=== PATIENT | female | born 1960 | race Caucasian/White ===

== ENCOUNTER 2018-08-31 11:44 | Inpatient (IN) | payer MEDICARE, OTHER ==
--- NOTE | 2018-08-31 12:04 | ER Document Report ---
ED Medical Screen (RME) - General Chief Complaint: Staple Removal Stated Complaint: SUTURE REMOVAL Time Seen by Provider: 08/31/18 11:59 Primary Care Provider: SHELBY MCFADDEN PA-C [Primary Care Provider] - Follow up as needed Notes: Patient had abdominal surgical procedures August 13, in [place]. She had panniculectomy and mons reconstruction and removal of an area of hidradenitis suppurativa. She was told the rio could be removed in 3 weeks, at this time. Patient says some of the rio have become embedded and overgrown and are very uncomfortable. Some of them have some drainage, but nothing that looks infected. No fevers. TRAVEL OUTSIDE OF THE [place] IN LAST 30 DAYS: No - Related Data Allergies/Adverse Reactions: Sulfa (Sulfonamide Antibiotics) Allergy (Verified 08/31/18 11:47) sumatriptan [From Imitrex] Allergy (Verified 08/31/18 11:47) Physical Exam - Vital signs Vitals: Temp Pulse Resp BP Pulse Ox 97.9 F 76 16 142/70 H 98 08/31/18 11:48 08/31/18 11:48 08/31/18 11:48 08/31/18 11:48 08/31/18 11:48 Course - Vital Signs Vital signs: Temp Pulse Resp BP Pulse Ox 97.9 F 76 16 142/70 H 98 08/31/18 11:48 08/31/18 11:48 08/31/18 11:48 08/31/18 11:48 08/31/18 11:48 Doctor's Discharge - Discharge Referrals: SHELBY MCFADDEN PA-C [Primary Care Provider] - Follow up as needed
--- NOTE | 2018-08-31 15:15 | ER Document Report ---
ED General - General Chief Complaint: Staple Removal Stated Complaint: SUTURE REMOVAL Time Seen by Provider: 08/31/18 11:59 Notes: 58-year-old female with history of hydradenitis suppurativa, atrial fibrillation on Xarelto, type 2 diabetes, hypertension, and rheumatoid arthritis on Remicade with recent panniculectomy and mons reconstruction on August 13 to remove an area of her hydradenitis suppurativa presents to the emergency department for staple removal. She states she was told that the rio could be removed in 3 weeks. She was hospitalized for 7 days, had a wound VAC and REBA drains x3. There were complications with the labia rio and they dehisced early. She is currently using wet-to-dry dressings and states that there is interval improvement. She denies any fevers or chills, shortness of breath or chest pain. Denies any warmth at any of the sites. Other complaints. TRAVEL OUTSIDE OF THE [place] IN LAST 30 DAYS: No - Related Data Allergies/Adverse Reactions: Sulfa (Sulfonamide Antibiotics) Allergy (Verified 08/31/18 11:47) sumatriptan [From Imitrex] Allergy (Verified 08/31/18 11:47) Past Medical History - Social History Smoking Status: Never Smoker Family History: None Patient has suicidal ideation: No Patient has homicidal ideation: No - Past Medical History Cardiac Medical History: Reports: Hx Hypercholesterolemia, Hx Hypertension Endocrine Medical History: Reports: Hx Diabetes Mellitus Type 2 Renal/ Medical History: Denies: Hx Peritoneal Dialysis Past Surgical History: Reports: Hx Appendectomy, Hx Section, Hx Cholecystectomy, Hx Orthopedic Surgery, Hx Tubal Ligation Review of Systems - Review of Systems Constitutional: See HPI EENT: See HPI Cardiovascular: See HPI Respiratory: See HPI Gastrointestinal: See HPI Genitourinary: No symptoms reported Female Genitourinary: No symptoms reported Musculoskeletal: No symptoms reported Skin: No symptoms reported Hematologic/Lymphatic: No symptoms reported Neurological/Psychological: No symptoms reported Physical Exam - Vital signs Vitals: Temp Pulse Resp BP Pulse Ox 97.9 F 76 16 142/70 H 98 08/31/18 11:48 08/31/18 11:48 08/31/18 11:48 08/31/18 11:48 08/31/18 11:48 - Notes Notes: PHYSICAL EXAMINATION: Reviewed vital signs and charting by RN GENERAL: Alert, interacts well. No acute distress. HEAD: Normocephalic, atraumatic. EYES: Pupils equal, round. Extraocular movements intact. ENT: Oral mucosa moist, tongue midline. NECK: Full range of motion. Supple. Trachea midline. LUNGS: Clear to auscultation bilaterally, no wheezes, rales, or rhonchi. No respiratory distress. HEART: Regular rate and rhythm. No murmur ABDOMEN: soft, non-tender. Non-distended. Bowel sounds present in all 4 quadrants. no McBurney's point tenderness, no Bueno sign. EXTREMITIES: Moves all 4 extremities spontaneously. No edema, No cyanosis. BACK: no cervical, thoracic, lumbar midline tenderness. No saddle anesthesia, normal distal neurovascular exam. NEUROLOGICAL: Alert and oriented x3. Normal speech. PSYCH: Normal affect, normal mood. SKIN: Large surgical incision from ASIS anterior across to ASIS secondary to panniculectomy grossly dehisced. Area is foul smelling and there is purulent discharge at the area where the mons pubis is with dehiscence. Course - Re-evaluation Re-evalutation: 08/31/18 15:17 Patient presents for suture removal. On initial inspection very poor wound healing throughout several areas with wound dehiscence or poor to no wound healing or approximation at all. She does have some purulent discharge in several areas and a wound culture was collected. Basic lab work and blood cultures ordered. I am going to contact Dr. Simons, surgeon continuing education director, to discuss this case. 08/31/18 19:54 Dr. Simons, came to see the patient and did perform some staple removal. He explored the incisions and did a mild debridement and cleanout at the bedside. I called the hospitalist as he requested a medical admission due to patient's extensive comorbidities and he would act as a presales consultant. Spoke with Dr. Rodrigues and he accepted the patient for admission. I gave the patient Ancef 1 g IV 1 time to initiate IV antibiotics. - Vital Signs Vital signs: Temp Pulse Resp BP Pulse Ox 98.2 F 66 14 138/53 H 99 08/31/18 14:36 08/31/18 14:36 08/31/18 14:36 08/31/18 14:36 08/31/18 14:36 - Laboratory Result Diagrams: 08/31/18 15:20 08/31/18 15:20 Laboratory results interpreted by me: 08/31/18 08/31/18 15:20 15:20 Hgb 11.0 L Hct 33.0 L RDW 14.2 H Sodium 136.8 L Est GFR ( Amer) 57 L Est GFR (Non-Af Amer) 47 L Glucose 118 H AST 49 H Alkaline Phosphatase 135 H Total Protein 8.5 H Discharge - Discharge Clinical Impression: Problem involving surgical incision Disposition: ADMITTED INPATIENT Admitting Provider: Hospitalist Unit Admitted: Surgical Floor
[2018-08-31 15:41] LABS: ABSOLUTE BASOPHILS # (AUTO) 0.1 10^3/uL (0.0-0.2); ABSOLUTE EOSINOPHILS # (AUTO) 0.4 10^3/uL (0.0-0.6); ABSOLUTE LYMPHOCYTES (AUTO) 1.7 10^3/uL (0.5-4.7); ABSOLUTE MONOCYTES (AUTO) 0.8 10^3/uL (0.1-1.4); ABSOLUTE NEUT (AUTO) 5.5 10^3/uL (1.7-8.2); BASOPHILS % (AUTO) 1.1 % (0-2); EOSINOPHILS % (AUTO) 4.9 % (0-6); LYMPHOCYTES % (AUTO) 19.8 % (13-45); MEAN CORPUSCULAR HEMOGLOBIN 29.7 pg (27.0-33.4); MEAN CORPUSCULAR HGB CONC 33.5 g/dL (32.0-36.0); MEAN CORPUSCULAR VOLUME 89 fl (80-97); MONOCYTES % (AUTO) 9.1 % (3-13); PLATELET COUNT 323 10^3/uL (150-450); RED BLOOD COUNT 3.72 10^6/uL (3.72-5.28); RED CELL DISTRIBUTION WIDTH 14.2 % (11.5-14.0); SEGMENTED NEUTROPHILS % (AUTO) 65.1 % (42-78); TOTAL CELLS COUNTED % (AUTO) 100 %; WHITE BLOOD COUNT 8.4 10^3/uL (4.0-10.5)
[2018-08-31 15:58] LABS: ALANINE AMINOTRANSFERASE 21 U/L (9-52); ALBUMIN 4.1 g/dL (3.5-5.0); ALKALINE PHOSPHATASE 135 U/L (38-126); ANION GAP 11 (5-19); ASPARTATE AMINO TRANSFERASE 49 U/L (14-36); BILIRUBIN,DIRECT 0.4 mg/dL (0.0-0.4); BILIRUBIN,TOTAL 0.6 mg/dL (0.2-1.3); BLOOD UREA NITROGEN 20 mg/dL (7-20); CARBON DIOXIDE 24 mmol/L (22-30); CHLORIDE 102 mmol/L (98-107); GLUCOSE 118 mg/dL (75-110); SODIUM 136.8 mmol/L (137-145); TOTAL PROTEIN 8.5 g/dL (6.3-8.2)
[2018-08-31] MEDS ORDERED: CEFAZOLIN 1 GM/D5W RTU 1 GM/50 ML RTUPB IV ONE (16:17)
[2018-08-31] MEDS ORDERED: ONDANSETRON HCL INJ/PF 4 MG/2 ML SDV IV PRN (16:40)
[2018-08-31] MEDS ORDERED: MAGNESIUM HYDROXIDE SUSP 30 ML UDCUP PO PRN (16:40)
[2018-08-31] MEDS ORDERED: ACETAMINOPHEN 325 MG TABLET PO PRN (16:40)
[2018-08-31] MEDS ORDERED: GLUCAGON,HUMAN RECOMB 1 MG INJ IM PRN (16:51)
[2018-08-31] MEDS ORDERED: DEXTROSE 50%-WATER 25 GM/50 ML DISP.SYRIN IV PRN ×2 (16:51)
[2018-08-31] MEDS ORDERED: DEXTROSE 40% GEL 15 GM TUBE PO PRN ×2 (16:51)
--- NOTE | 2018-08-31 17:02 | PDOC CONSULTATION ---
Consultation Consult Date: 08/31/18 Consult reason:: Panniculectomy wound problems History of Present Illness Admission Date/PCP: AMERICA NGUYEN MD History of Present Illness: FABIAN FREY is a 58 year old female Who presents to the emergency department via ground rescue complaining of chronic wound problems associated with a panniculectomy, resection of hidradenitis suppurativa performed in [facility] on August 13 by plastic surgery team. Patient had partial dehiscence of her wound, wound VAC, and drain all removed last several weeks. She returned home to [facility] and has been from her incision. She presents to the emergency department because of increased drainage. She denies fever, significant change in her blood sugar levels. Her local medical doctors are associated with [facility]. She is on chronic immunosuppression with Remicade. Surgery was consulted and she was advised admission wound management to various partial dehiscence, and soft tissue instability Past Medical History Past Medical History: Morbid obesity, diabetes mellitus, gout, hypertension, chronic hidradenitis suppurativa Cardiac Medical History: Reports: Hyperlipidema, Hypertension Endocrine Medical History: Reports: Diabetes Mellitus Type 2 Past Surgical History Past Surgical History: Panniculectomy August 13 [place] Past Surgical History: Reports: Appendectomy, Section, Cholecystectomy, Orthopedic Surgery, Tubal Ligation Social History Smoking Status: Never Smoker Frequency of Alcohol Use: None Hx Recreational Drug Use: No Hx Prescription Drug Abuse: No Family History Family History: None Parental Family History Reviewed: Yes Children Family History Reviewed: Yes Sibling(s) Family History Reviewed.: Yes Medication/Allergy Allergies/Adverse Reactions: Sulfa (Sulfonamide Antibiotics) Allergy (Verified 08/31/18 11:47) sumatriptan [From Imitrex] Allergy (Verified 08/31/18 11:47) Review of Systems Constitutional: PRESENT: as per HPI Eyes: ABSENT: visual disturbances Ears: ABSENT: hearing changes Respiratory: ABSENT: cough, hemoptysis Gastrointestinal: ABSENT: abdominal pain, constipation, diarrhea, hematemesis, hematochezia, nausea, vomiting Integumentary: PRESENT: as per HPI Psychiatric: ABSENT: anxiety, depression, homidical ideation, suicidal ideation Endocrine: ABSENT: cold intolerance, heat intolerance, polydipsia, polyuria Physical Exam Vital Signs: Temp Pulse Resp BP Pulse Ox 98.2 F 66 14 138/53 H 99 08/31/18 14:36 08/31/18 14:36 08/31/18 14:36 08/31/18 14:36 08/31/18 14:36 Intake & Output 08/30/18 08/31/18 09/01/18 06:59 06:59 06:59 Weight 136.3 kg General appearance: PRESENT: no acute distress Head exam: PRESENT: normocephalic Eye exam: PRESENT: EOMI Mouth exam: PRESENT: dry mucosa Neck exam: PRESENT: full ROM Respiratory exam: PRESENT: clear to auscultation mattie Cardiovascular exam: PRESENT: RRR Pulses: PRESENT: normal carotid pulses, normal radial pulses, normal dorsalis pedis pul GI/Abdominal exam: PRESENT: other - Large different shape panniculectomy in cision with rio in place many dehisced; no component of the incision going down to the mons pubic area with dehiscence inferiorly, expose granulation tissue, some seropurulent material, some rio long-term in; some acuña fibrinous eschar; no active pus or foul smell Rectal exam: PRESENT: deferred Extremities exam: PRESENT: +1 edema Musculoskeletal exam: PRESENT: ambulatory Neurological exam: PRESENT: awake, oriented to person, oriented to place, oriented to time, oriented to situation Psychiatric exam: PRESENT: appropriate affect Results Laboratory Results: 08/31/18 15:20 08/31/18 15:20 08/31/18 08/31/18 15:20 15:20 WBC 8.4 RBC 3.72 Hgb 11.0 L Hct 33.0 L MCV 89 MCH 29.7 MCHC 33.5 RDW 14.2 H Plt Count 323 Seg Neutrophils % 65.1 Lymphocytes % 19.8 Monocytes % 9.1 Eosinophils % 4.9 Basophils % 1.1 Absolute Neutrophils 5.5 Absolute Lymphocytes 1.7 Absolute Monocytes 0.8 Absolute Eosinophils 0.4 Absolute Basophils 0.1 Sodium 136.8 L Potassium 4.0 Chloride 102 Carbon Dioxide 24 Anion Gap 11 BUN 20 Creatinine 1.18 Est GFR ( Amer) 57 L Est GFR (Non-Af Amer) 47 L Glucose 118 H Calcium 10.0 Total Bilirubin 0.6 AST 49 H ALT 21 Alkaline Phosphatase 135 H Total Protein 8.5 H Albumin 4.1 Assessment & Plan - Diagnosis (1) Status post panniculectomy Is this a current diagnosis for this admission?: Yes Plan: Impression: 1 month status post panniculectomy for complicated hidradenitis suppurativa in morbidly obese, immunosuppressed white female with diabetes mary jo itus now with areas of wound dehiscence; No overt signs of flap failure or significant soft tissue infection. Recommendations: 1. I have removed multiple rio of no use, and multiple sutures also of no use; areas of wound washed out; the mons pubic wound will require wet-to-dry dressing. The left side of the panniculectomy wound will require Xeroform, dry gauzes and micropore tape. The right side of the panniculectomy appears stable at this time; there is nothing to actively debride currently; she may benefit from a debridement of selected areas. 2. Because of the chronic nature of this postoperative problem, her multiple comorbidities, and the size of this wound, I recommended to be admitted for local wound care, and empiric antibiotic therapy. Transition to the [facility] wound [facility] for follow-up on an outpatient basis in the 24 to 48 hours. 3. I have spoken with the primary care team, and the emergency department; surgery will serve in a consulting capacity, and the patient will be admitted to the hospitalist service. (2) Morbid obesity Is this a current diagnosis for this admission?: Yes (3) Hidradenitis suppurativa Is this a current diagnosis for this admission?: Yes (4) Diabetes mellitus Qualifiers: Diabetes mellitus type: type 2 (5) Gout Is this a current diagnosis for this admission?: Yes - Time Time Spent: 30 to 50 Minutes Smoking Cessation Education: over 10 minutes Medications reviewed and adjusted accordingly: Yes Anticipated discharge: Home - Inpatient Certification Based on my medical assessment, after consideration of the patient's comorbidities, presenting symptoms, or acuity I expect that the services needed warrant INPATIENT care.: Yes I certify that my determination is in accordance with my understanding of Medicare's requirements for reasonable and necessary INPATIENT services [42 CFR 412.3e].: Yes Medical Necessity: Need for IV Antibiotics
[2018-08-31] MEDS: HYDRALAZINE HCL INJ/PF 20 MG/1 ML SDV IV SCH ×2 (20:30→22:54)
[2018-08-31] MEDS: LEVOFLOXACIN 750 MG/D5W RTU 750 MG/150 ML RTUPB IV SCH (21:09)
[2018-08-31] MEDS: DOCUSATE SODIUM 100 MG CAPSULE PO SCH (22:54)
[2018-08-31] MEDS: CEFAZOLIN 2 GM/D5W RTU 2 GM/50 ML RTUPB IV SCH (22:55)
[2018-08-31] MEDS: INSULIN REG, HUMAN 100 UNIT/ML 3 ML VIAL (PYX) SUBCUT SCH (23:27)
[2018-09-01] MEDS: ATORVASTATIN CALCIUM 40 MG TABLET PO SCH ×2 (00:15→21:27)
[2018-09-01] MEDS: ZOLPIDEM TARTRATE 5 MG TABLET PO PRN ×2 (00:52→21:39)
[2018-09-01] MEDS: HYDRALAZINE HCL INJ/PF 20 MG/1 ML SDV IV SCH ×5 (02:42→18:20)
[2018-09-01 05:17] LABS: ABSOLUTE BASOPHILS # (AUTO) 0.1 10^3/uL (0.0-0.2); ABSOLUTE EOSINOPHILS # (AUTO) 0.4 10^3/uL (0.0-0.6); ABSOLUTE LYMPHOCYTES (AUTO) 1.7 10^3/uL (0.5-4.7); ABSOLUTE MONOCYTES (AUTO) 0.9 10^3/uL (0.1-1.4); BASOPHILS % (AUTO) 1.2 % (0-2); HEMATOCRIT 31.1 % (36.0-47.0); HEMOGLOBIN 10.6 g/dL (12.0-15.5); LYMPHOCYTES % (AUTO) 23.3 % (13-45); MEAN CORPUSCULAR HGB CONC 33.9 g/dL (32.0-36.0); MEAN CORPUSCULAR VOLUME 89 fl (80-97); PLATELET COUNT 281 10^3/uL (150-450); RED BLOOD COUNT 3.52 10^6/uL (3.72-5.28); RED CELL DISTRIBUTION WIDTH 14.2 % (11.5-14.0); SEGMENTED NEUTROPHILS % (AUTO) 56.5 % (42-78); TOTAL CELLS COUNTED % (AUTO) 100 %; WHITE BLOOD COUNT 7.1 10^3/uL (4.0-10.5)
[2018-09-01] MEDS: PANTOPRAZOLE SODIUM 40 MG TABLET.DR PO SCH (05:21)
[2018-09-01] MEDS: CEFAZOLIN 2 GM/D5W RTU 2 GM/50 ML RTUPB IV SCH ×2 (05:22→14:40)
[2018-09-01 05:41] LABS: ALANINE AMINOTRANSFERASE 26 U/L (9-52); ALBUMIN 3.2 g/dL (3.5-5.0); ALKALINE PHOSPHATASE 117 U/L (38-126); ANION GAP 9 (5-19); ASPARTATE AMINO TRANSFERASE 32 U/L (14-36); BILIRUBIN,DIRECT 0.2 mg/dL (0.0-0.4); BILIRUBIN,TOTAL 0.5 mg/dL (0.2-1.3); BLOOD UREA NITROGEN 20 mg/dL (7-20); CALCIUM 9.5 mg/dL (8.4-10.2); CARBON DIOXIDE 23 mmol/L (22-30); CHLORIDE 106 mmol/L (98-107); GLUCOSE 138 mg/dL (75-110); POTASSIUM 3.9 mmol/L (3.6-5.0); SODIUM 138.1 mmol/L (137-145); TOTAL PROTEIN 6.9 g/dL (6.3-8.2)
--- NOTE | 2018-09-01 08:13 | PDOC PROGRESS REPORT ---
Subjective Progress Note for:: 09/01/18 Subjective:: no pains Reason For Visit: INFECTED WOUND Physical Exam Vital Signs: Temp Pulse Resp BP Pulse Ox 97.8 F 73 16 138/54 H 97 09/01/18 05:21 09/01/18 05:21 09/01/18 05:21 09/01/18 05:21 09/01/18 05:21 Intake & Output 08/31/18 09/01/18 09/02/18 06:59 06:59 06:59 Intake Total 400 Output Total 1000 Balance -600 Weight 136.1 kg Exam: abdominal incision appears dry. Mild erythema at midpart. Non foul smelling Results Laboratory Results: 09/01/18 05:01 09/01/18 05:01 08/31/18 08/31/18 09/01/18 15:20 15:20 05:01 WBC 8.4 7.1 RBC 3.72 3.52 L Hgb 11.0 L 10.6 L Hct 33.0 L 31.1 L MCV 89 89 MCH 29.7 30.0 MCHC 33.5 33.9 RDW 14.2 H 14.2 H Plt Count 323 281 Seg Neutrophils % 65.1 56.5 Lymphocytes % 19.8 23.3 Monocytes % 9.1 13.0 Eosinophils % 4.9 6.0 Basophils % 1.1 1.2 Absolute Neutrophils 5.5 4.0 Absolute Lymphocytes 1.7 1.7 Absolute Monocytes 0.8 0.9 Absolute Eosinophils 0.4 0.4 Absolute Basophils 0.1 0.1 Sodium 136.8 L Potassium 4.0 Chloride 102 Carbon Dioxide 24 Anion Gap 11 BUN 20 Creatinine 1.18 Est GFR ( Amer) 57 L Est GFR (Non-Af Amer) 47 L Glucose 118 H Calcium 10.0 Total Bilirubin 0.6 AST 49 H ALT 21 Alkaline Phosphatase 135 H Total Protein 8.5 H Albumin 4.1 09/01/18 05:01 WBC RBC Hgb Hct MCV MCH MCHC RDW Plt Count Seg Neutrophils % Lymphocytes % Monocytes % Eosinophils % Basophils % Absolute Neutrophils Absolute Lymphocytes Absolute Monocytes Absolute Eosinophils Absolute Basophils Sodium 138.1 Potassium 3.9 Chloride 106 Carbon Dioxide 23 Anion Gap 9 BUN 20 Creatinine 1.05 Est GFR ( Amer) > 60 Est GFR (Non-Af Amer) 54 L Glucose 138 H Calcium 9.5 Total Bilirubin 0.5 AST 32 ALT 26 Alkaline Phosphatase 117 Total Protein 6.9 Albumin 3.2 L Assessment & Plan - Time Time Spent with patient: 15-24 minutes - Inpatient Certification Medical Necessity: Need for IV Antibiotics, Risk of Complication if Not Cared For in Hospital - Plan Summary Plan Summary: Continue IV antibiotics Continue saline wet to dry dressings to lower part of incision. Eventual follow up at the [facility]
[2018-09-01] MEDS: INSULIN REG, HUMAN 100 UNIT/ML 3 ML VIAL (PYX) SUBCUT SCH ×4 (09:23→21:24)
[2018-09-01] MEDS: ENOXAPARIN SODIUM INJ 40 MG/0.4 ML DISP.SYRIN SUBCUT SCH (09:25)
[2018-09-01] MEDS: NIFEDIPINE 30 MG TAB.ER.24 PO SCH (09:27)
[2018-09-01] MEDS: METOPROLOL SUCCINATE 50 MG TAB.SR.24H PO SCH (09:28)
[2018-09-01] MEDS: OXYCODONE-ACETAMINOPHEN 5-325 MG TABLET PO PRN (09:29)
[2018-09-01] MEDS: DOCUSATE SODIUM 100 MG CAPSULE PO SCH ×2 (09:29→18:42)
[2018-09-01] MEDS: LEVOFLOXACIN 750 MG/D5W RTU 750 MG/150 ML RTUPB IV SCH (09:31)
[2018-09-01] MEDS ORDERED: DULOXETINE HCL 30 MG CAPSULE.DR PO SCH (10:00)
[2018-09-01] MEDS ORDERED: LOSARTAN POTASSIUM 50 MG TABLET PO SCH (10:00)
--- NOTE | 2018-09-01 10:28 | HISTORY AND PHYSICAL E ---
History and Physical NAME: FABIAN FREY : 1960 AGE: 58Y ADMITTED: 08/31/2018 ROOM: [facility] CHIEF COMPLAINT: 1. THE PATIENT COMES TO THE EMERGENCY ROOM FOR WOUND STAPLE REMOVAL. 2. DIABETES. 3. HYPERTENSION. HISTORY OF THE PRESENT ILLNESS: The patient is a very pleasant, 58-year-old female who is morbidly obese. Has a past medical history of diabetes, hypertension, atrial fibrillation on Xarelto and Toprol XL. The patient has been having hydradenitis suppurativa and she had a surgery, constructive surgery for that at [place] on August 13, 2018. She also had panniculectomy and reconstruction so she came for removal of the staple after 3 weeks after following the surgery. She was evaluated by Dr. Simons in the ER who is the surgicalist technical information specialist. It is noted that the wound has suspicion for infection. Recommended the patient be admitted for IV antibiotics. She received 1 dose of Ancef in ER. Patient denied any fever or nausea, vomiting, or chills. There is noted to be of the wound. Her blood sugar is being controlled as well as also her hypertension also controlled. She had a. fib and she is on Xarelto and Toprol. REVIEW OF SYSTEMS: GENERAL: There is no generalized weakness or fatigue. No fever or chills. HEAD: No headache or dizziness. EARS: No tinnitus or vertigo. NOSE: No discharge from the nose. NECK: No pain or difficulty swallowing. CARDIOVASCULAR: No chest pain, no paroxysmal nocturnal dyspnea or orthopnea. RESPIRATORY: No crackles, no wheezing. No cough. GASTROINTESTINAL: No nausea, no vomiting, no diarrhea. GENITOURINARY: No urgency, no frequency, no dysuria, no hematuria. ENDOCRINE: No polyuria, polyphagia, or polydipsia. PSYCHIATRIC: No depression. HEMATOLOGIC/LYMPHOCYTIC: No anemia, no easy bruising. SKIN: There is no rash. PAST MEDICAL HISTORY: 1. History of diabetes type 2. 2. Hypertension. 3. History of hydradenitis suppurativa requiring constructive surgery. 4. Rheumatoid arthritis; she is on Arava as well as Remicade. PAST SURGICAL HISTORY: 1. Hydradenitis suppurativa. 2. Recent panniculectomy. HOME MEDICATION: 1. She is on Xarelto, dose unknown. 2. Toprol XL. 3. Arava for rheumatoid arthritis. 4. Remicade. 5. Lantus sliding scale. 6. She is also on Benicar. 7. Procardia. ALLERGIES: SHE IS ALLERGIC TO SULFA AND SUMATRIPTAN. SOCIAL HISTORY: Never smokes or drinks. FAMILY HISTORY: Positive for hypertension in her mother and father. PHYSICAL EXAMINATION: GENERAL: Patient lying in bed, comfortable, not in distress. VITAL SIGNS: Blood pressure is 138/53, temperature 98.2, heart rate is 66. HEENT: Head normocephalic, atraumatic. Pupils round, reactive to light and accommodation bilaterally. Extraocular movements intact. Ears: Tympanic membranes are intact bilaterally. No discharge from the ears. No discharge from the nose. NECK: Supple. No increased JVD. No thyromegaly, no lymphadenopathy. CARDIOVASCULAR: Normal S1, S2. Regular rate and rhythm. No murmur. No gallop. RESPIRATORY: Lungs clear. ABDOMEN: Soft, nontender. MUSCULOSKELETAL: No edema. NEUROLOGICAL: Awake, alert. SKIN: No rash. LABORATORY: White blood count 8.4, hemoglobin 11, sodium 136, potassium 4.0. ASSESSMENT: 1. INFECTED WOUND, ABDOMINAL WOUND AND GROIN WOUND. FOLLOWING SURGERY FOR HYDRADENITIS SUPPURATIVA STATUS POST CONSTRUCTIVE SURGERY. 2. DIABETES MELLITUS. 3. HYPERTENSION. 4. MORBID OBESITY. PLAN: 1. We will admit the patient to Surgical floor. 2. Consult surgery. 3. Wound culture, blood culture. 4. We will start her on antibiotics IV, Ancef 2 gram every 8 hour and Levaquin 750 mg every day. 5. Code status: Full code. 6. DIET: Diabetic diet. 7. We will continue her home mediation after we clarify the dose. She is on Benicar, Procardia, Xarelto, Remicade, Arava, Lantus. 8. The patient completely understood. TIME SPENT: One hour. DICTATING PHYSICIAN: HIMANSHU EASTMAN M.D. [id number] PHY#: [id number] ID: [id number] JOB#: [id number] ACCT: [id number] cc:PB PETIT M.D. > ТАТЬЯНАD
[2018-09-01] MEDS: INSULIN GLARGINE,HUM.REC.ANLOG 300 UNIT/3 ML INSULN.PEN SUBCUT SCH (11:36)
[2018-09-01] MEDS: LOSARTAN POTASSIUM 50 MG TABLET PO SCH (11:37)
[2018-09-01] MEDS ORDERED: VANCOMYCIN HCL 0 MG in DEXTROSE 5%-WATER 250 ML IV NR (18:45)
--- NOTE | 2018-09-01 19:04 | PDOC PROGRESS REPORT ---
Subjective Progress Note for:: 09/01/18 Subjective:: This is a 58 year old female with chronic wound problems associated with a panniculectomy, resection of hidradenitis suppurativa performed in [facility] on August 13 by plastic surgery team, had partial dehiscence of her wound, wound VAC, and drain all removed last several weeks, on chronic immunosuppression with Infliximab who presented with wound dehiscence and increasing discharge. She was started on IV antibiotics and surgery was consulted. Today, per RN, patient continued to have yellowish but non-foul smelling discharge from the abdominal pannus. No fever or chills. Surgery recommends continuing IV antibiotics for now. Wound culture is growing gram positive cocci and gram positive rods so far. Will broaden IV antibiotics for now until culture s are back. Reason For Visit: INFECTED WOUND Physical Exam Vital Signs: Temp Pulse Resp BP Pulse Ox 97.7 F 64 14 134/59 H 97 09/01/18 16:22 09/01/18 16:22 09/01/18 16:22 09/01/18 16:22 09/01/18 16:22 Intake & Output 08/31/18 09/01/18 09/02/18 06:59 06:59 06:59 Intake Total 400 1440 Output Total 1000 400 Balance -600 1040 Weight 300 lb 0.786 oz General appearance: PRESENT: no acute distress, well-developed, well-nourished Head exam: PRESENT: atraumatic, normocephalic Eye exam: PRESENT: conjunctiva pink, EOMI, PERRLA. ABSENT: scleral icterus Ear exam: PRESENT: normal external ear exam Mouth exam: PRESENT: moist, tongue midline Neck exam: ABSENT: carotid bruit, JVD, lymphadenopathy, thyromegaly Respiratory exam: PRESENT: clear to auscultation mattie. ABSENT: rales, rhonchi, wheezes Cardiovascular exam: PRESENT: RRR. ABSENT: diastolic murmur, rubs, systolic murmur GI/Abdominal exam: PRESENT: normal bowel sounds, soft, other - dressing soaked with drainage. ABSENT: distended, guarding, mass, organolmegaly, rebound, tenderness Rectal exam: PRESENT: deferred Neurological exam: PRESENT: alert, awake, oriented to person, oriented to place, oriented to time, oriented to situation, CN II-XII grossly intact. ABSENT: motor sensory deficit Results Laboratory Results: 09/01/18 05:01 09/01/18 05:01 09/01/18 09/01/18 05:01 05:01 WBC 7.1 RBC 3.52 L Hgb 10.6 L Hct 31.1 L MCV 89 MCH 30.0 MCHC 33.9 RDW 14.2 H Plt Count 281 Seg Neutrophils % 56.5 Lymphocytes % 23.3 Monocytes % 13.0 Eosinophils % 6.0 Basophils % 1.2 Absolute Neutrophils 4.0 Absolute Lymphocytes 1.7 Absolute Monocytes 0.9 Absolute Eosinophils 0.4 Absolute Basophils 0.1 Sodium 138.1 Potassium 3.9 Chloride 106 Carbon Dioxide 23 Anion Gap 9 BUN 20 Creatinine 1.05 Est GFR ( Amer) > 60 Est GFR (Non-Af Amer) 54 L Glucose 138 H Calcium 9.5 Total Bilirubin 0.5 AST 32 ALT 26 Alkaline Phosphatase 117 Total Protein 6.9 Albumin 3.2 L Assessment & Plan - Diagnosis (1) Hidradenitis suppurativa Is this a current diagnosis for this admission?: Yes Plan: There is continuing yellowish, non foul smelling drainage from the dehisced wound. Will broaden IV antibiotic coverage for now until cultures are back. (2) Hypertension Is this a current diagnosis for this admission?: Yes Plan: DC scheduled IV hydralazine. Continue losartan, metoprolol and nifedipine. (3) Diabetes mellitus Qualifiers: Diabetes mellitus type: type 2 Is this a current diagnosis for this admission?: Yes Plan: Sugars at goal. Continue Lantus and sliding scale. - Time Time Spent with patient: 25-34 minutes
[2018-09-01] MEDS: VANCOMYCIN HCL 1,500 MG in DEXTROSE 5%-WATER 250 ML IV SCH (21:28)
[2018-09-01] MEDS: PIPERACILLIN SODIUM/TAZOBACTAM 3.375 GM in NORMAL SALINE 100 ML IV SCH (23:59)
[2018-09-02] MEDS: PIPERACILLIN SODIUM/TAZOBACTAM 3.375 GM in NORMAL SALINE 100 ML IV SCH ×3 (05:52→17:23)
[2018-09-02] MEDS: PANTOPRAZOLE SODIUM 40 MG TABLET.DR PO SCH (05:52)
[2018-09-02] MEDS: INSULIN REG, HUMAN 100 UNIT/ML 3 ML VIAL (PYX) SUBCUT SCH ×4 (08:46→21:50)
[2018-09-02] MEDS: DOCUSATE SODIUM 100 MG CAPSULE PO SCH ×2 (09:18→17:24)
[2018-09-02] MEDS: LOSARTAN POTASSIUM 50 MG TABLET PO SCH (09:20)
[2018-09-02] MEDS: NIFEDIPINE 30 MG TAB.ER.24 PO SCH (09:21)
[2018-09-02] MEDS: METOPROLOL SUCCINATE 50 MG TAB.SR.24H PO SCH (09:21)
[2018-09-02] MEDS: DULOXETINE HCL 30 MG CAPSULE.DR PO SCH (09:22)
[2018-09-02] MEDS: ENOXAPARIN SODIUM INJ 40 MG/0.4 ML DISP.SYRIN SUBCUT SCH (09:24)
[2018-09-02] MEDS: INSULIN GLARGINE,HUM.REC.ANLOG 300 UNIT/3 ML INSULN.PEN SUBCUT SCH (09:24)
[2018-09-02] MEDS: OXYCODONE-ACETAMINOPHEN 5-325 MG TABLET PO PRN (09:46)
--- NOTE | 2018-09-02 15:55 | PDOC PROGRESS REPORT ---
Subjective Progress Note for:: 09/02/18 Subjective:: denies pains Reason For Visit: INFECTED WOUND Physical Exam Vital Signs: Temp Pulse Resp BP Pulse Ox 98.5 F 72 16 134/83 H 96 09/02/18 11:47 09/02/18 11:47 09/02/18 11:47 09/02/18 11:47 09/02/18 11:47 Intake & Output 09/01/18 09/02/18 09/03/18 06:59 06:59 06:59 Intake Total 400 2290 Output Total 1000 400 Balance -600 1890 Weight 136.1 kg 135.1 kg Exam: panniculectomy site same as yesterday. No apparent collection. Continued mild erythema at the area just above the labia. Not any worse Results Laboratory Results: 09/01/18 05:01 09/01/18 05:01 Assessment & Plan - Diagnosis (1) Cellulitis Qualifiers: Site of cellulitis of trunk: abdominal wall Is this a current diagnosis for this admission?: Yes - Time Time Spent with patient: 15-24 minutes - Inpatient Certification Medical Necessity: Need for IV Antibiotics - Plan Summary Plan Summary: Continue IV antibiotics Recommend [facility]
[2018-09-02] MEDS: VANCOMYCIN HCL 1,500 MG in DEXTROSE 5%-WATER 250 ML IV SCH (20:01)
[2018-09-02] MEDS: ATORVASTATIN CALCIUM 40 MG TABLET PO SCH (21:51)
[2018-09-03] MEDS: PIPERACILLIN SODIUM/TAZOBACTAM 3.375 GM in NORMAL SALINE 100 ML IV SCH ×5 (00:01→23:14)
--- NOTE | 2018-09-03 04:51 | PDOC PROGRESS REPORT ---
Subjective Progress Note for:: 09/02/18 Subjective:: 58 y.o. F with a PMH of hydradenitis suppurativa, atrial fibrillation on Xarelto, type 2 diabetes, hypertension, and rheumatoid arthritis on Remicade. She underwent a recent panniculectomy, resection of hidradenitis suppurativa (performed in [facility] on August 13 by plastic surgery team). There were complications with the labia rio and they dehisced early. The labia rio, wound VAC, and 2 REBA drains were all removed in the last several weeks. The sole stover presented to [facility] ED for removal of the panniculectomy rio, initial assessment revealed wound dehiscence and increasing discharge. She was admitted to the hospitalist service, with Surgery consulted, for her infected wound. The patient was seen this morning on rounds, she is resting comfortably in bed with family at bedside. The patient denies any pain to the surgical site. Had been undergoing daily wet-to-dry dressing changes to the affected area. There is still a significant amount of yellow discharge/pus at the surgical site. The patient has not spiked a fever, she denies fever or chills, appears nontoxic. To not feel that the patient is ready for discharge given the condition of her wound. Will re-evaluate tomorrow. No planned surgical intervention at this time. Reason For Visit: INFECTED WOUND Physical Exam Vital Signs: Temp Pulse Resp BP Pulse Ox 97.8 F 65 18 134/54 H 94 09/02/18 23:53 09/02/18 23:53 09/02/18 23:53 09/02/18 23:53 09/02/18 23:53 Intake & Output 09/01/18 09/02/18 09/03/18 06:59 06:59 06:59 Intake Total 400 2290 550 Output Total 1000 400 450 Balance -600 1890 100 Weight 136.1 kg 135.1 kg General appearance: PRESENT: morbidly obese Eye exam: PRESENT: conjunctiva pink Mouth exam: PRESENT: moist, tongue midline Neck exam: PRESENT: full ROM Respiratory exam: PRESENT: symmetrical, unlabored Cardiovascular exam: PRESENT: +S1, +S2 Pulses: PRESENT: normal radial pulses Vascular exam: PRESENT: normal capillary refill GI/Abdominal exam: PRESENT: soft, tenderness - near surgical site. ABSENT: distended Rectal exam: PRESENT: deferred Extremities exam: PRESENT: full ROM Musculoskeletal exam: PRESENT: ambulatory, full ROM Neurological exam: PRESENT: alert, awake, oriented to person, oriented to place, oriented to time, oriented to situation Psychiatric exam: PRESENT: appropriate affect Skin exam: PRESENT: dry, erythema, normal color, other - PANNICULECTOMY SURGICAL SITE APPEARS ERYTHEMATOUS. THE LABIA SURGICAL SITE IS OPEN, WET TO DRY DRESSING PRESENT. YELLOW DRAINAGE PRESENT. NON-MALODOROUS. Results Laboratory Results: 09/01/18 05:01 09/01/18 05:01 Status: Imported from PACS Assessment and Plan - Diagnosis (1) Hidradenitis suppurativa Is this a current diagnosis for this admission?: Yes Plan: Yellow, non-malodorous drainage on the area of wound dehiscence Continue broad spectrum antibiotics - Vanc/Zosyn Awaiting wound C&S Plan for close follow up with wound care clinic (2) Diabetes mellitus Qualifiers: Diabetes mellitus type: type 2 Is this a current diagnosis for this admission?: Yes Plan: History of DM Humalog SSI Daily glargine 20U Accuchecks ACHS (3) Morbid obesity Is this a current diagnosis for this admission?: Yes Plan: Weight management via diet control - Time Time Spent with patient: 15-24 minutes Medications reviewed and adjusted accordingly: Yes Anticipated discharge: Home Within: within 48 hours - Inpatient Certification Based on my medical assessment, after consideration of the patient's comorbidities, presenting symptoms, or acuity I expect that the services needed warrant INPATIENT care.: Yes I certify that my determination is in accordance with my understanding of Medicare's requirements for reasonable and necessary INPATIENT services [42 CFR 412.3e].: Yes Medical Necessity: Need for IV Antibiotics - Plan Summary Plan Summary: CONTINUE IV ABX. AWAITING WOUND C&S. PLAN FOR DISCHARGE WITH CLOSE FOLLOW UP [facility]IC
[2018-09-03] MEDS: PANTOPRAZOLE SODIUM 40 MG TABLET.DR PO SCH (06:21)
[2018-09-03 08:28] LABS: HEMATOCRIT 29.8 % (36.0-47.0); HEMOGLOBIN 10.1 g/dL (12.0-15.5); MEAN CORPUSCULAR HGB CONC 33.8 g/dL (32.0-36.0); MEAN CORPUSCULAR VOLUME 89 fl (80-97); PLATELET COUNT 242 10^3/uL (150-450); RED BLOOD COUNT 3.35 10^6/uL (3.72-5.28); RED CELL DISTRIBUTION WIDTH 14.2 % (11.5-14.0); WHITE BLOOD COUNT 5.7 10^3/uL (4.0-10.5)
[2018-09-03 08:42] LABS: ALANINE AMINOTRANSFERASE 26 U/L (9-52); ALKALINE PHOSPHATASE 111 U/L (38-126); ANION GAP 10 (5-19); ASPARTATE AMINO TRANSFERASE 27 U/L (14-36); BILIRUBIN,DIRECT 0.3 mg/dL (0.0-0.4); BILIRUBIN,TOTAL 0.4 mg/dL (0.2-1.3); BLOOD UREA NITROGEN 15 mg/dL (7-20); CALCIUM 9.3 mg/dL (8.4-10.2); CARBON DIOXIDE 21 mmol/L (22-30); CHLORIDE 108 mmol/L (98-107); GLUCOSE 133 mg/dL (75-110); POTASSIUM 3.7 mmol/L (3.6-5.0); SODIUM 139.2 mmol/L (137-145); TOTAL PROTEIN 6.8 g/dL (6.3-8.2)
[2018-09-03] MEDS: DULOXETINE HCL 30 MG CAPSULE.DR PO SCH (10:12)
[2018-09-03] MEDS: METOPROLOL SUCCINATE 50 MG TAB.SR.24H PO SCH (10:13)
[2018-09-03] MEDS: NIFEDIPINE 30 MG TAB.ER.24 PO SCH (10:13)
[2018-09-03] MEDS: LOSARTAN POTASSIUM 50 MG TABLET PO SCH (10:13)
[2018-09-03] MEDS: INSULIN GLARGINE,HUM.REC.ANLOG 300 UNIT/3 ML INSULN.PEN SUBCUT SCH (10:14)
[2018-09-03] MEDS: ENOXAPARIN SODIUM INJ 40 MG/0.4 ML DISP.SYRIN SUBCUT SCH (10:14)
[2018-09-03] MEDS: INSULIN REG, HUMAN 100 UNIT/ML 3 ML VIAL (PYX) SUBCUT SCH ×4 (10:34→22:33)
[2018-09-03] MEDS: DOCUSATE SODIUM 100 MG CAPSULE PO SCH ×2 (10:38→17:23)
[2018-09-03] MEDS: OXYCODONE-ACETAMINOPHEN 5-325 MG TABLET PO PRN (10:39)
[2018-09-03] MEDS ORDERED: MICONAZOLE NITRATE 2% VAGINAL CREAM 45 GM TUBE PV SCH (22:00)
[2018-09-03] MEDS ORDERED: MICONAZOLE NITRATE 200 MG/SUPP (3 SUPP/BOX) VG SCH (22:00)
[2018-09-03] MEDS: ATORVASTATIN CALCIUM 40 MG TABLET PO SCH (22:34)
[2018-09-04] MEDS: PANTOPRAZOLE SODIUM 40 MG TABLET.DR PO SCH (05:15)
[2018-09-04] MEDS: PIPERACILLIN SODIUM/TAZOBACTAM 3.375 GM in NORMAL SALINE 100 ML IV SCH ×2 (05:15→13:07)
[2018-09-04] MEDS: LOSARTAN POTASSIUM 50 MG TABLET PO SCH (10:33)
[2018-09-04] MEDS: NIFEDIPINE 30 MG TAB.ER.24 PO SCH (10:33)
[2018-09-04] MEDS: METOPROLOL SUCCINATE 50 MG TAB.SR.24H PO SCH (10:34)
[2018-09-04] MEDS: DULOXETINE HCL 30 MG CAPSULE.DR PO SCH (10:34)
[2018-09-04] MEDS: ENOXAPARIN SODIUM INJ 40 MG/0.4 ML DISP.SYRIN SUBCUT SCH (10:35)
[2018-09-04] MEDS: INSULIN GLARGINE,HUM.REC.ANLOG 300 UNIT/3 ML INSULN.PEN SUBCUT SCH (10:36)
[2018-09-04] MEDS: NYSTATIN 500000 UNIT/5 ML UDCUP PO SCH ×4 (11:06→17:15)
[2018-09-04] MEDS: DOCUSATE SODIUM 100 MG CAPSULE PO SCH (11:10)
[2018-09-04] MEDS: INSULIN REG, HUMAN 100 UNIT/ML 3 ML VIAL (PYX) SUBCUT SCH ×2 (11:10→16:20)
[2018-09-04] MEDS ORDERED: FLUCONAZOLE 100 MG TABLET PO ONE (13:00)
--- NOTE | 2018-09-04 15:11 | Progress Note ---
Provider Note Provider Note: ID Consult Note Asked to review chart by Alla Copeland NP. Pt not seen or examined. Pt is a 58 year old morbidly obese woman with PMH including AF on anticoagulation, DM, HTN, RA on Remicade, and recent panniculectomy and mons reconstruction for hidradenitis suppurativa on 08/03 who had partial dehiscence of her wound, wound VAC, and drain that were removed. She presented to the [place] ED on 08/31/18 for staple removal and increased drainage. In the ED the wound was noted to have areas of dehiscence in many places, purulent drainage and malodor, but when re- examined by Dr Simons seropurlent material and some acuña fibrinous eschar was appreciated without active pus. On follow up the wound has been noted to have some mild erythema at the midpart above the labia and no apparent collection. Some sort of swab was sent when the patient was in the ED from the abdominal incision to the lab, which grew skin tory, Klebsiella oxytoca, Enterococcus faecalis, and Prevotella. Pt has a sulfa allergy. She is currently receiving Zosyn IV. She has no fever, no leukocytosis, and blood cultures are negative. Impression Infection of post-panniculectomy/mons-reconstruction surgical wound - Not all surgical site infections require adjunctive systemic antimicrobial therapy, particularly in absence of systemic signs of infection and limited local signs of infection. However with the patient's immunosuppression, such features may be blunted, and a course of systemic antimicrobial therapy may be reasonable. - Superficial wound swab cultures are not always helpful because they can reveal growth of organisms that are colonists, in addition to those that could be pathogens, but it is helpful that no MRSA or Pseudomonas was isolated. Recommendations - The following might be reasonable options: PO Keflex 1 g QID plus Flagyl 500 mg TID. or PO Levaquin 750 mg daily plus Flagyl 500 mg TID - Keflex/Flagyl would pose less of a C diff risk, but it has a higher pill burden and frequency. If Levaquin/Flagyl is used, the pt should be instructed to avoid concurrently taking Maalox, Tums, calcium, magnesium or zinc containing products or multivitamin with minerals to avoid chelating the oral fluoroquinolone. - Would aim for 5-7 days of treatment in conjunction with good local wound care. Stewart Sam MD [facility] Infectious Diseases pager [phone]
[2018-09-04] MEDS ORDERED: METRONIDAZOLE 500 MG TABLET PO SCH (16:45)
[2018-09-04] MEDS: OXYCODONE-ACETAMINOPHEN 5-325 MG TABLET PO PRN (17:16)
[2018-09-04] MEDS ORDERED: CEPHALEXIN 500 MG CAPSULE PO SCH (18:00)
[2018-09-04 18:19] VITALS: BP 117/62
[2018-09-05] MEDS ORDERED: INSULIN GLARGINE,HUM.REC.ANLOG 1,000 UNIT/10 ML VIAL SUBCUT SCH (10:00)
--- NOTE | 2018-09-15 12:34 | PDOC DISCHARGE SUMMARY ---
General - Admit/Disc Date/PCP Admission Date/Primary Care Provider: 08/31/18 16:56 AMERICA NGUYEN MD Discharge Date: 09/04/18 - Discharge Diagnosis (1) Hidradenitis suppurativa Is this a current diagnosis for this admission?: Yes (2) Diabetes mellitus Is this a current diagnosis for this admission?: Yes (3) Morbid obesity Is this a current diagnosis for this admission?: Yes - Additional Information Discharge Diet: As Tolerated Discharge Activity: Activity As Tolerated Prescriptions: Cephalexin Monohydrate [Keflex 500 mg Capsule] 1,000 mg PO QID #28 capsule Metronidazole [Flagyl 500 mg Tablet] 500 mg PO Q8 #21 tablet Nystatin [Mycostatin 500,000 Unit/5 ml Susp Udcup] 500,000 unit PO QID #20 udc Home Medications: Allopurinol [Zyloprim] 150 mg PO DAILY 08/31/18 Atorvastatin Calcium [Lipitor 40 mg Tablet] 40 mg PO QPM 08/31/18 Duloxetine HCl [Cymbalta] 60 mg PO DAILY 08/31/18 Empagliflozin [Jardiance] 25 mg PO DAILY 08/31/18 Furosemide [Lasix] 40 mg PO Q2D 08/31/18 Infliximab-Dyyb [Inflectra] 100 mg IV .EVERY 6 WEEKS 08/31/18 Insulin Glargine,Hum.rec.anlog [Lantus Insulin 100 Unit/mL] 20 unit SUBCUT DAILY 08/31/18 Lactobacillus Acidophilus [Probiotic] 1 each PO DAILY 08/31/18 Leflunomide [Arava] 10 mg PO DAILY 08/31/18 Metoprolol Succinate [Toprol Xl] 50 mg PO Q12 08/31/18 Nifedipine [Procardia XL 30 mg Tablet] 30 mg PO DAILY 08/31/18 Olmesartan Medoxomil [Benicar] 40 mg PO DAILY 08/31/18 Spironolactone [Aldactone 25 mg Tablet] 25 mg PO Q12 08/31/18 Cephalexin Monohydrate [Keflex 500 mg Capsule] 1,000 mg PO QID #28 capsule 09/04/18 Metronidazole [Flagyl 500 mg Tablet] 500 mg PO Q8 #21 tablet 09/04/18 Nystatin [Mycostatin 500,000 Unit/5 ml Susp Udcup] 500,000 unit PO QID #20 udc 03/21/19 History of Present Illness History of Present Illness: see H&P dictation from 08/31/2018 Hospital Course Hospital Course: 58 y.o. F with a PMH of hydradenitis suppurativa, atrial fibrillation on Xarelto, type 2 diabetes, hypertension, and rheumatoid arthritis on Remicade. She underwent a recent panniculectomy, resection of hidradenitis suppurativa (performed in [facility] on August 13 by plastic surgery team). There were complications with the labia rio and they dehisced early. The labia rio, wound VAC, and 2 REBA drains were all removed in the last several weeks. The patie hernandez presented to [facility] ED for removal of the panniculectomy rio, initial assessment revealed wound dehiscence and increasing discharge. She was admitted to the hospitalist service, with Surgery consulted, for her infected wound. Dr. Simons of Surgery removed multiple rio and sutured, but not all. The surgical wound over the mons pubis was washed out and packed with xeroform. Subsequent dressing changes were done by nursing staff. Yellow, non-malodorous drainage was noted on the area of wound dehiscence. Wound culture sent to lab and patient was placed on broad spectrum antibiotics - Vancomycin/Zosyn. The culture eventually grew out Enterococcus, Klebsiella and Prevotella. ID was consulted regarding antibiotic regimen and duration of treatment. The patient was transitioned from Vancomycin/Zosyn to PO keflex and Flagyl, per recommendations from Dr. Sam. The patient requested oral nystatin because she believed she was developing thrush as a result of the IV antibiotics. In additi on to antibiotics and nystatin, the patient was given instructions to follow up closely with the [place] wound care clinic. On hospital day #3 the patient was sent home with home health and fci, specifically for wound care. Dressing instructions for the home health nurse: The mons pubic wound will require wet-to-dry dressing. The left side of the panniculectomy wound will require Xeroform, dry gauzes and micropore tape. The right side of the panniculectomy appears stable at this time; there is nothing to actively debride currently Physical Exam Vital Signs: Temp Pulse Resp BP Pulse Ox 97.7 F 72 20 117/62 99 09/04/18 18:15 09/04/18 18:15 09/04/18 18:15 09/04/18 18:15 09/04/18 18:15 Results Laboratory Results: 09/03/18 07:45 09/03/18 07:00 Status: Imported from PACS Qualifiers - * PATIENT BEING DISCHARGED WITH ANY OF THE FOLLOWING DIAGNOSIS: No
== END 2018-09-04 20:30 | disposition home health service (06) | DRG 863 ==
LOC: ER 11:44 → EH 16:56 → 2N 22:45
PROVIDERS: ADMIT Internal Medicine; ATTEND Internal Medicine
DX: T81.49XA Infection following a procedure, other surgical site, initial encounter (principal); T81.31XA Disruption of external operation (surgical) wound, not elsewhere classified, initial encounter; I48.91 Unspecified atrial fibrillation; E66.01 Morbid (severe) obesity due to excess calories; E11.9 Type 2 diabetes mellitus without complications; B96.1 Klebsiella pneumoniae [K. pneumoniae] as the cause of diseases classified elsewhere; B37.9 Candidiasis, unspecified; L73.2 Hidradenitis suppurativa; I10 Essential (primary) hypertension; M06.9 Rheumatoid arthritis, unspecified; B95.2 Enterococcus as the cause of diseases classified elsewhere; M10.9 Gout, unspecified; E78.5 Hyperlipidemia, unspecified; Z48.02 Encounter for removal of sutures; Z79.84 Long term (current) use of oral hypoglycemic drugs; Z79.4 Long term (current) use of insulin; Z79.01 Long term (current) use of anticoagulants; Z88.6 Allergy status to analgesic agent; Z88.2 Allergy status to sulfonamides; Z82.49 Family history of ischemic heart disease and other diseases of the circulatory system
CPT/HCPCS: 36415; 80053; 82962; 83735; 85025; 85027; 87040; 87070; 87075; 87077; 87186; 87205; 99284; J0690; J1650; J1815; J1956; J2543; J3370; J3490; J7060

== ENCOUNTER → 2018-10-27 | Outpatient (CLI) | payer MEDICARE, OTHER ==
--- NOTE | 2018-10-27 12:38 | WOMENS IMAGING REPORT ---
EXAM DESCRIPTION: RETROPERITONEAL U/S COMPLETED DATE/TIME: 10/27/2018 11:35 am REASON FOR STUDY: N18.3 CHRONIC KIDNEY DISEASE, STAGE 3 N18.3 CHRONIC KIDNEY DISEASE, STAGE 3 (MODE RATE) I12.9 HYPERTENSIVE CHRONIC KIDNEY DISEASE W STG 1-4/UNSP CHR E11.9 TYPE 2 DIABETES MELLITUS W ITHOUT COMPLICATIONS COMPARISON: None. TECHNIQUE: Dynamic and static grayscale images acquired of the kidneys and bladder and recorded on P ACS. Additional selected color Doppler and spectral images recorded. LIMITATIONS: None. FINDINGS: RIGHT KIDNEY: Normal size, 10.3 cm. Normal echogenicity. No solid or suspicious muriel s. No hydronephrosis. No calcifications. LEFT KIDNEY: Normal size, 11.5 cm. Normal echogenicity. No solid or suspicious masses. No hydr onephrosis. No calcifications. BLADDER: Poorly seen. No obvious mass. OTHER FINDINGS: No other significant finding. IMPRESSION: Grossly normal study. Study is limited by patient body habitus. TECHNICAL DOCUMENTATION: JOB ID: [id number] [employer]- All Rights Reserved Reading location - IP/workstation name: [email or web address]
== END ==
LOC: RAD 11:11
PROVIDERS: ATTEND Internal Medicine Nephrology
DX: E11.22 Type 2 diabetes mellitus with diabetic chronic kidney disease (principal); I12.9 Hypertensive chronic kidney disease with stage 1 through stage 4 chronic kidney disease, or unspecified chronic kidney disease; N18.3 Chronic kidney disease, stage 3 (moderate)
CPT/HCPCS: 76770

== ENCOUNTER → 2018-11-20 | Outpatient (CLI) | payer MEDICARE, OTHER ==
[2018-11-20 13:28] LABS: ABSOLUTE EOSINOPHILS # (AUTO) 0.2 10^3/uL (0.0-0.6); ABSOLUTE LYMPHOCYTES (AUTO) 0.9 10^3/uL (0.5-4.7); ABSOLUTE MONOCYTES (AUTO) 0.5 10^3/uL (0.1-1.4); ABSOLUTE NEUT (AUTO) 3.6 10^3/uL (1.7-8.2); BASOPHILS % (AUTO) 0.5 % (0-2); EOSINOPHILS % (AUTO) 3.5 % (0-6); HEMATOCRIT 34.2 % (36.0-47.0); HEMOGLOBIN 11.2 g/dL (12.0-15.5); LYMPHOCYTES % (AUTO) 16.9 % (13-45); MEAN CORPUSCULAR HEMOGLOBIN 28.6 pg (27.0-33.4); MEAN CORPUSCULAR HGB CONC 32.9 g/dL (32.0-36.0); MEAN CORPUSCULAR VOLUME 87 fl (80-97); MONOCYTES % (AUTO) 9.8 % (3-13); PLATELET COUNT 183 10^3/uL (150-450); RED BLOOD COUNT 3.93 10^6/uL (3.72-5.28); RED CELL DISTRIBUTION WIDTH 15.5 % (11.5-14.0); SEGMENTED NEUTROPHILS % (AUTO) 69.3 % (42-78); TOTAL CELLS COUNTED % (AUTO) 100 %; WHITE BLOOD COUNT 5.2 10^3/uL (4.0-10.5)
[2018-11-20 13:38] LABS: APPEARANCE,URINE SLIGHTLY-CLOUDY; BILIRUBIN,URINE NEGATIVE (NEGATIVE); COLOR,URINE YELLOW; GLUCOSE, URINE >=500 mg/dL (NEGATIVE); KETONES,URINE NEGATIVE (NEGATIVE); LEUKOCYTE ESTERASE,URINE SMALL (NEGATIVE); NITRITE,URINE NEGATIVE (NEGATIVE); PROTEIN,URINE NEGATIVE (NEGATIVE); URINE SPECIFIC GRAVITY 1.024; UROBILINOGEN,URINE NEGATIVE mg/dL (<2.0)
[2018-11-20 13:43] LABS: ALBUMIN 3.4 g/dL (3.5-5.0); ANION GAP 10 (5-19); BLOOD UREA NITROGEN 16 mg/dL (7-20); CALCIUM 9.3 mg/dL (8.4-10.2); CARBON DIOXIDE 27 mmol/L (22-30); CHLORIDE 106 mmol/L (98-107); GLUCOSE 218 mg/dL (75-110); IRON(TIBC) 41.5 ug/dL (37-170); PHOSPHORUS 4.3 mg/dL (2.5-4.5); SODIUM 142.8 mmol/L (137-145)
[2018-11-21 12:38] LABS: CREATININE URINE 68.9 mg/dL (Not Estab.); MICROALBUMIN URINE 3.2 ug/mL (Not Estab.)
== END ==
LOC: OD 12:43
PROVIDERS: ATTEND Internal Medicine Nephrology
DX: N39.0 Urinary tract infection, site not specified (principal); E11.22 Type 2 diabetes mellitus with diabetic chronic kidney disease; I12.9 Hypertensive chronic kidney disease with stage 1 through stage 4 chronic kidney disease, or unspecified chronic kidney disease; N18.3 Chronic kidney disease, stage 3 (moderate)
CPT/HCPCS: 36415; 80069; 81001; 82043; 82306; 82570; 82728; 83540; 83550; 83970; 85025; 87086

== ENCOUNTER 2019-01-09 11:52 | Emergency (ER) | payer MEDICARE, OTHER ==
--- NOTE | 2019-01-09 12:42 | ER Document Report ---
ED Medical Screen (RME) - General Chief Complaint: Fever Stated Complaint: FEVER/CHILLS Time Seen by Provider: 01/09/19 12:31 Primary Care Provider: SONDRA GUTIERREZ MD [Primary Care Provider] - Follow up as needed Notes: Patient is a 50-year-old female presents to the emergency department for intermittent fevers since September. Patient states she underwent multiple surgeries in her lower abdomen and mons pubis area. States she was seeing wound management for same. States she has a history of lymphedema does have some active serous drainage from the site from time to time. States she was admitted to the hospital recently for this infection. Patient states since then has had intermittent fevers since September. Patient states she took 1500 mg of Tylenol prior to arrival to the emergency department which is why she currently is afebrile. GENERAL: Morbidly obese alert, interacts well. No acute distress. LUNGS: Clear to auscultation bilaterally, no wheezes, rales, or rhonchi. No respiratory distress. I have greeted and performed a rapid initial assessment of this patient. A comprehensive ED assessment and evaluation of the patient, analysis of test results and completion of the medical decision making process will be conducted by additional ED providers. I have specifically instructed the patient or family members with the patient to immediately return to any nursing staff should anything change in the patient's condition or with their chief complaint. This medical record was dictated with voice recognizing software. There may be grammatical, syntax errors that are unintended. TRAVEL OUTSIDE OF THE [place] IN LAST 30 DAYS: No - Related Data Allergies/Adverse Reactions: Sulfa (Sulfonamide Antibiotics) Allergy (Verified 01/09/19 12:40) sumatriptan [From Imitrex] Allergy (Verified 01/09/19 12:40) Past Medical History - Social History Chew tobacco use (# tins/day): No Frequency of alcohol use: None Drug Abuse: None - Past Medical History Cardiac Medical History: Reports: Hx Hypercholesterolemia, Hx Hypertension Endocrine Medical History: Reports: Hx Diabetes Mellitus Type 2 Renal/ Medical History: Denies: Hx Peritoneal Dialysis Psychiatric Medical History: Reports: Hx Depression Past Surgical History: Reports: Hx Appendectomy, Hx Section, Hx Maria T cystectomy, Hx Orthopedic Surgery, Hx Tubal Ligation Physical Exam - Vital signs Vitals: Temp Pulse Resp BP Pulse Ox 99.6 F 104 H 22 H 171/85 H 94 01/09/19 12:09 01/09/19 12:09 01/09/19 12:09 01/09/19 12:09 01/09/19 12:09 Course - Vital Signs Vital signs: Temp Pulse Resp BP Pulse Ox 99.6 F 104 H 22 H 171/85 H 94 01/09/19 12:09 01/09/19 12:09 01/09/19 12:09 01/09/19 12:09 01/09/19 12:09 Doctor's Discharge - Discharge Referrals: SONDRA GUTIERREZ MD [Primary Care Provider] - Follow up as needed
[2019-01-09 13:32] LABS: VENOUS BLOOD BASE EXCESS -0.3 mmol/L; VENOUS BLOOD HCO3 24.5 mmol/L (20-32); VENOUS BLOOD PCO2 40.6 mmHg (35-63); VENOUS BLOOD PH 7.4 (7.30-7.42)
[2019-01-09 13:34] LABS: HEMATOCRIT 35.7 % (36.0-47.0); HEMOGLOBIN 11.8 g/dL (12.0-15.5); MEAN CORPUSCULAR HEMOGLOBIN 28.9 pg (27.0-33.4); MEAN CORPUSCULAR HGB CONC 33.2 g/dL (32.0-36.0); MEAN CORPUSCULAR VOLUME 87 fl (80-97); PLATELET COUNT 183 10^3/uL (150-450); WHITE BLOOD COUNT 13.1 10^3/uL (4.0-10.5)
[2019-01-09 13:44] LABS: INTERNATIONAL RATION (INR) 1.52; PROTHROMBIN TIME 18.5 SEC (11.4-15.4)
[2019-01-09 13:57] LABS: ALANINE AMINOTRANSFERASE 19 U/L (9-52); ALBUMIN 3.6 g/dL (3.5-5.0); ALKALINE PHOSPHATASE 113 U/L (38-126); ANION GAP 9 (5-19); ASPARTATE AMINO TRANSFERASE 21 U/L (14-36); BILIRUBIN,DIRECT 0.3 mg/dL (0.0-0.4); BILIRUBIN,TOTAL 0.5 mg/dL (0.2-1.3); BLOOD UREA NITROGEN 12 mg/dL (7-20); CALCIUM 9.1 mg/dL (8.4-10.2); CARBON DIOXIDE 26 mmol/L (22-30); CHLORIDE 103 mmol/L (98-107); GLUCOSE 152 mg/dL (75-110); POTASSIUM 3.9 mmol/L (3.6-5.0); TOTAL PROTEIN 7.4 g/dL (6.3-8.2)
[2019-01-09 14:08] LABS: ABSOLUTE LYMPHOCYTES# (MANUAL) 0.7 10^3/uL (0.5-4.7); ABSOLUTE MONOCYTES # (MANUAL) 0.4 10^3/uL (0.1-1.4); BASOPHILS % (MANUAL) 0 % (0-2); EOSINOPHILS % (MANUAL) 1 % (0-6); LYMPHOCYTES % (MANUAL) 5 % (13-45); MONOCYTES % (MANUAL) 3 % (3-13); SEGMENTED NEUTROPHILS % (MAN) 91 % (42-78); TOTAL CELLS COUNTED 100
[2019-01-09 14:10] LABS: ANISOCYTOSIS SLIGHT; HYPOCHROMASIA SLIGHT; PLATELET COMMENT ADEQUATE; PLATELET LARGE PRESENT
--- NOTE | 2019-01-09 14:37 | RADIOLOGY REPORT (SQ) ---
EXAM DESCRIPTION: CHEST SINGLE VIEW COMPLETED DATE/TIME: 01/09/2019 2:30 pm REASON FOR STUDY: fever COMPARISON: None. NUMBER OF VIEWS: One view. TECHNIQUE: Single frontal radiographic image of the chest acquired. LIMITATIONS: None. FINDINGS: LUNGS AND PLEURA: Stable appearance. MEDIASTINUM AND HILAR STRUCTURES: Stable heart size and mediastinal structures. HEART AND VASCULAR STRUCTURES: Stable appearance. SUPPORT DEVICES: Appropriate location without change. BONES: No acute findings. OTHER: No other significant finding. IMPRESSION: STABLE APPEARANCE OF THE CHEST. SUPPORT DEVICES UNCHANGED. TECHNICAL DOCUMENTATION: JOB ID: [id number] [employer]- All Rights Reserved Reading location - IP/workstation name: [email or web address]
--- NOTE | 2019-01-09 14:43 | ER Document Report ---
ED General - General Chief Complaint: Fever Stated Complaint: FEVER/CHILLS Time Seen by Provider: 01/09/19 12:31 Primary Care Provider: SONDRA GUTIERREZ MD [ACTIVE STAFF] - Follow up as needed Notes: Patient is a 58-year-old female with hidradenitis suppurativa, psoriasis that presents to the emergency department for chief complaint of intermittent fevers. Patient states his been getting intermittent fevers over the past 3 to 4 months,, really since September this is been going on it was every 3 to 4 weeks for, but seemingly more frequent, she states her fever was 102 F this morning she took 1500 mg of Tylenol and has come down but she was not sure what caused it she was advised to come to the ER by multiple physicians. She is had flares of hidradenitis, had multiple surgeries on her abdomen as a result. She is on TNF alpha inhibitor, for her condition, her last dose was several weeks ago, she is not due till the second week of January, for her next dose. She has had warmth and erythema to her abdomen, but she states is been getting worse but it has been there for several weeks. She also has had some labial swelling, which is not uncommon with her condition she states. She currently rates her pain as a 4 out of 10 describes it is worse in the labia area. She also reports having some drainage from her scalp, which is being treated with triamcinolone shampoo, and she is following up with a locksmith apprentice. Past Medical History: Hidradenitis suppurativa, psoriasis, arthritis Past Surgical History: Panniculectomy, mon pubis surgery Social History: Denies current tobacco, alcohol or drug use. Family History: Reviewed and noncontributory for presenting illness Allergies: Reviewed, see documented allergy list. REVIEW OF SYSTEMS: Other than noted above, the 12 point review of systems was reviewed with the patient and were negative, all pertinent findings are included in the HPI. PHYSICAL EXAMINATION: Vital signs reviewed, nursing noted reviewed. GENERAL: Obese female, no acute distress appears mildly uncomfortable HEAD: Atraumatic, normocephalic. There are skattered sebhoreic lesions noted on the scalp, no fluctuance noted. EYES: Eyes appear normal, extraocular movements intact, sclera anicteric, conjunctiva are normal. ENT: nares patent, oropharynx clear without exudates. Moist mucous membranes. NECK: Normal range of motion, supple without lymphadenopathy LUNGS: Breath sounds clear to auscultation bilaterally and equal. No wheezes rales or rhonchi. HEART: Regular rate and rhythm without murmurs ABDOMEN: Soft, obese, nontender, normoactive bowel sounds. No rebound, guarding, or rigidity. No masses appreciated. There is erythema noted to the lower abdominal skin without any palpated mass or fluctuance, no significantly tender to palpate. External female genitalia exam: Associate Director Of Nursing present. Patient noted to have one open lesion and swelling noted to the right labia majora, no active drainage currently. EXTREMITIES: Nontender, good range of motion, no pitting or edema. NEUROLOGICAL: No focal neurological deficits. Moves all extremities spontan eously Motor and sensory grossly intact on exam. PSYCH: Normal mood, normal affect. SKIN: Warm, Dry, normal turgor, patient has multiple lesions of the skin, which appear to be excoriations of the abdomen and lower extremities, from picking. TRAVEL OUTSIDE OF THE [place] IN LAST 30 DAYS: No - Related Data Allergies/Adverse Reactions: Sulfa (Sulfonamide Antibiotics) Allergy (Verified 01/09/19 12:40) sumatriptan [From Imitrex] Allergy (Verified 01/09/19 12:40) Past Medical History - Social History Smoking Status: Never Smoker Chew tobacco use (# tins/day): No Frequency of alcohol use: None Drug Abuse: None Family History: None Patient has suicidal ideation: No Patient has homicidal ideation: No - Past Medical History Cardiac Medical History: Reports: Hx Hypercholesterolemia, Hx Hypertension Endocrine Medical History: Reports: Hx Diabetes Mellitus Type 2 Renal/ Medical History: Denies: Hx Peritoneal Dialysis Psychiatric Medical History: Reports: Hx Depression Past Surgical History: Reports: Hx Appendectomy, Hx Section, Hx Cholecystectomy, Hx Orthopedic Surgery, Hx Tubal Ligation Physical Exam - Vital signs Vitals: Temp Pulse Resp BP Pulse Ox 99.6 F 104 H 22 H 171/85 H 94 01/09/19 12:09 01/09/19 12:09 01/09/19 12:09 01/09/19 12:09 01/09/19 12:09 Course - Re-evaluation Re-evalutation: Patient seen and examined vital signs reviewed. Laboratory data and/or imaging were ordered as appropriate for the patient's presenting symptoms and complaint, with consideration of any critical or life threatening conditions that may be associated with their obtained history and exam as noted above. Patient was treated with IV Unasyn, for possible abdominal wall cellulitis Results were reviewed when available and demonstrated mild leukocytosis, with left shift, chemistry unremarkable, UA was not convincing of urinary tract infection The patient was re-evaluated and was hemodynamically stable, otherwise appeared well, was dosed with IV Unasyn, and will be discharged home on Augmentin, which should cover prior cultured wound bacteria, patient was advised to follow-up with her locksmith apprentice and primary care is agreed with this plan of care. Evaluation was most consistent with abdominal wall cellulitis Results were discussed with the patient at this point, after careful considerati on I feel that that patient can be discharged from the emergency department, the patient was educated treatments and reasons to return to the emergency department based on their presumed diagnosis as noted above, they were advised to followup with a primary care physician in 2-3 days. Patient was agreeable to plan of care. *Note is created using voice recognition software and may contain spelling, syntax or grammatical errors. Laboratory 01/09/19 01/09/19 01/09/19 13:15 13:15 13:15 WBC 13.1 H RBC 4.10 Hgb 11.8 L Hct 35.7 L MCV 87 MCH 28.9 MCHC 33.2 RDW 15.0 H Plt Count 183 Total Counted 100 Seg Neutrophils % Not Reportable Seg Neuts % (Manual) 91 H Lymphocytes % Not Reportable Lymphocytes % (Manual) 5 L Monocytes % Not Reportable Monocytes % (Manual) 3 Eosinophils % Not Reportable Eosinophils % (Manual) 1 Basophils % Not Reportable Basophils % (Manual) 0 Absolute Neutrophils Not Reportable Abs Neuts (Manual) 11.9 H Absolute Lymphocytes Not Reportable Abs Lymphs (Manual) 0.7 Absolute Monocytes Not Reportable Abs Monocytes (Manual) 0.4 Absolute Eosinophils Not Reportable Absolute Eos (Manual) 0.1 Absolute Basophils Not Reportable Abs Basophils (Manual) 0.0 Large Platelets PRESENT Platelet Comment ADEQUATE Hypochromasia SLIGHT Anisocytosis SLIGHT PT INR VBG pH VBG pCO2 VBG HCO3 VBG Base Excess Sodium 137.7 Potassium 3.9 Chloride 103 Carbon Dioxide 26 Anion Gap 9 BUN 12 Creatinine 0.97 Est GFR ( Amer) > 60 Est GFR (Non-Af Amer) 59 L Glucose 152 H Lactic Acid 1.7 Calcium 9.1 Total Bilirubin 0.5 Direct Bilirubin 0.3 Neonat Total Bilirubin Not Reportable Neonat Direct Bilirubin Not Reportable Neonat Indirect Bili Not Reportable AST 21 ALT 19 Alkaline Phosphatase 113 Total Protein 7.4 Albumin 3.6 Urine Color Urine Appearance Urine pH Ur Specific [place] Urine Protein Urine Glucose (UA) Urine Ketones Urine Blood Urine Nitrite Urine Bilirubin Urine Urobilinogen Ur Leukocyte Esterase Urine WBC (Auto) Urine RBC (Auto) Urine Bacteria (Auto) Squamous Epi Cells Auto Urine Ascorbic Acid 01/09/19 01/09/19 01/09/19 13:15 13:15 14:20 WBC RBC Hgb Hct MCV MCH MCHC RDW Plt Count Total Counted Seg Neutrophils % Seg Neuts % (Manual) Lymphocytes % Lymphocytes % (Manual) Monocytes % Monocytes % (Manual) Eosinophils % Eosinophils % (Manual) Basophils % Basophils % (Manual) Absolute Neutrophils Abs Neuts (Manual) Absolute Lymphocytes Abs Lymphs (Manual) Absolute Monocytes Abs Monocytes (Manual) Absolute Eosinophils Absolute Eos (Manual) Absolute Basophils Abs Basophils (Manual) Large Platelets Platelet Comment Hypochromasia Anisocytosis PT 18.5 H INR 1.52 VBG pH 7.40 VBG pCO2 40.6 VBG HCO3 24.5 VBG Base Excess -0.3 Sodium Potassium Chloride Carbon Dioxide Anion Gap BUN Creatinine Est GFR ( Amer) Est GFR (Non-Af Amer) Glucose Lactic Acid Calcium Total Bilirubin Direct Bilirubin Neonat Total Bilirubin Neonat Direct Bilirubin Neonat Indirect Bili AST ALT Alkaline Phosphatase Total Protein Albumin Urine Color STRAW Urine Appearance CLEAR Urine pH 5.0 Ur Specific [place] 1.014 Urine Protein 30 H Urine Glucose (UA) >=500 H Urine Ketones NEGATIVE Urine Blood SMALL H Urine Nitrite NEGATIVE Urine Bilirubin NEGATIVE Urine Urobilinogen NEGATIVE Ur Leukocyte Esterase SMALL H Urine WBC (Auto) 26 Urine RBC (Auto) 4 Urine Bacteria (Auto) TRACE Squamous Epi Cells Auto 1 Urine Ascorbic Acid NEGATIVE - Vital Signs Vital signs: Temp Pulse Resp BP Pulse Ox 98.2 F 81 16 148/79 H 99 01/09/19 16:24 01/09/19 16:24 01/09/19 16:24 01/09/19 16:24 01/09/19 16:24 - Laboratory Result Diagrams: 01/09/19 13:15 01/09/19 13:15 Laboratory results interpreted by me: 01/09/19 01/09/19 01/09/19 13:15 13:15 13:15 WBC 13.1 H Hgb 11.8 L Hct 35.7 L RDW 15.0 H Seg Neuts % (Manual) 91 H Lymphocytes % (Manual) 5 L Abs Neuts (Manual) 11.9 H PT 18.5 H Est GFR (Non-Af Amer) 59 L Glucose 152 H Urine Protein Urine Glucose (UA) Urine Blood Ur Leukocyte Esterase 01/09/19 14:20 WBC Hgb Hct RDW Seg Neuts % (Manual) Lymphocytes % (Manual) Abs Neuts (Manual) PT Est GFR (Non-Af Amer) Glucose Urine Protein 30 H Urine Glucose (UA) >=500 H Urine Blood SMALL H Ur Leukocyte Esterase SMALL H Discharge - Discharge Clinical Impression: Hidradenitis suppurativa Cellulitis Qualifiers: Site of cellulitis: trunk Site of cellulitis of trunk: abdominal wall Qualified Code(s): L03.311 - Cellulitis of abdominal wall Condition: Stable Disposition: HOME, SELF-CARE Instructions: Cellulitis ([facility]) Additional Instructions: Please complete the entire course of antibiotics as prescribed, follow-up with your locksmith apprentice, continue to take Tylenol if needed for fever, if your symptoms are worsening, you can always return to the emergency department to be reevaluated. I recommend you start trying Selsun Blue as well for your scalp to see if that will help with some of the drainage that you are having. Prescriptions: Amox Tr/Potassium Clavulanate [Augmentin 875-125 Tablet] 1 tab PO BID #20 tablet Referrals: SONDRA GUTIERREZ MD [ACTIVE STAFF] - Follow up as needed
[2019-01-09 14:44] LABS: APPEARANCE,URINE CLEAR; BILIRUBIN,URINE NEGATIVE (NEGATIVE); COLOR,URINE STRAW; GLUCOSE, URINE >=500 mg/dL (NEGATIVE); KETONES,URINE NEGATIVE (NEGATIVE); LEUKOCYTE ESTERASE,URINE SMALL (NEGATIVE); NITRITE,URINE NEGATIVE (NEGATIVE); PROTEIN,URINE 30 mg/dL (NEGATIVE); URINE SPECIFIC GRAVITY 1.014; UROBILINOGEN,URINE NEGATIVE mg/dL (<2.0)
[2019-01-09] MEDS ORDERED: AMPICILLIN SOD/SULBACTAM 3 GM VIAL IV ONE (15:06)
[2019-01-09 16:06] VITALS: BP 148/79
--- NOTE | 2019-01-09 23:05 | EKG REPORT ---
SEVERITY:- ABNORMAL ECG - SINUS RHYTHM BORDERLINE LEFT AXIS DEVIATION : Confirmed by: Ann Ellis 09-Jan-2019 23:05:05
== END 2019-01-09 16:26 | disposition home or self-care (01) ==
LOC: ER 11:52
DX: L73.2 Hidradenitis suppurativa (principal); L03.311 Cellulitis of abdominal wall; N90.89 Other specified noninflammatory disorders of vulva and perineum; R50.9 Fever, unspecified; L40.9 Psoriasis, unspecified; Z79.899 Other long term (current) drug therapy
CPT/HCPCS: 93005; 99284; 96365; 36415; 87040; 87086; 83605; 85025; 85610; 87088; 80053; 81001; 82803; 71045; 93010; J0295; 87186

== ENCOUNTER → 2019-04-21 | Outpatient (CLI) | payer MEDICARE, OTHER ==
[2019-04-21 12:39] LABS: ABSOLUTE BASOPHILS # (AUTO) 0.1 10^3/uL (0.0-0.2); ABSOLUTE EOSINOPHILS # (AUTO) 0.2 10^3/uL (0.0-0.6); ABSOLUTE LYMPHOCYTES (AUTO) 0.9 10^3/uL (0.5-4.7); ABSOLUTE MONOCYTES (AUTO) 0.5 10^3/uL (0.1-1.4); ABSOLUTE NEUT (AUTO) 4.2 10^3/uL (1.7-8.2); BASOPHILS % (AUTO) 0.9 % (0-2); HEMATOCRIT 35.5 % (36.0-47.0); HEMOGLOBIN 12.2 g/dL (12.0-15.5); LYMPHOCYTES % (AUTO) 14.9 % (13-45); MEAN CORPUSCULAR HEMOGLOBIN 30.5 pg (27.0-33.4); MEAN CORPUSCULAR HGB CONC 34.3 g/dL (32.0-36.0); MEAN CORPUSCULAR VOLUME 89 fl (80-97); MONOCYTES % (AUTO) 8.9 % (3-13); PLATELET COUNT 191 10^3/uL (150-450); RED BLOOD COUNT 3.99 10^6/uL (3.72-5.28); RED CELL DISTRIBUTION WIDTH 13.4 % (11.5-14.0); SEGMENTED NEUTROPHILS % (AUTO) 71.3 % (42-78); TOTAL CELLS COUNTED % (AUTO) 100 %; WHITE BLOOD COUNT 5.9 10^3/uL (4.0-10.5)
[2019-04-21 13:30] LABS: ALBUMIN 3.5 g/dL (3.5-5.0); ANION GAP 11 (5-19); BLOOD UREA NITROGEN 16 mg/dL (7-20); CALCIUM 9.6 mg/dL (8.4-10.2); CARBON DIOXIDE 25 mmol/L (22-30); CHLORIDE 106 mmol/L (98-107); GLUCOSE 143 mg/dL (75-110); IRON(TIBC) 47.9 ug/dL (37-170)
== END ==
LOC: OD 12:02
PROVIDERS: ATTEND Internal Medicine Nephrology
DX: I12.9 Hypertensive chronic kidney disease with stage 1 through stage 4 chronic kidney disease, or unspecified chronic kidney disease (principal); N18.3 Chronic kidney disease, stage 3 (moderate); E11.22 Type 2 diabetes mellitus with diabetic chronic kidney disease; D50.9 Iron deficiency anemia, unspecified; E55.9 Vitamin D deficiency, unspecified; N25.81 Secondary hyperparathyroidism of renal origin
CPT/HCPCS: 36415; 80048; 82040; 82306; 82728; 83540; 83550; 83970; 85025

== ENCOUNTER 2019-08-05 09:46 | Emergency (ER) | payer MEDICARE, OTHER ==
--- NOTE | 2019-08-05 10:13 | ER Document Report ---
ED Medical Screen (RME) - General Chief Complaint: Back Pain Stated Complaint: BACK/RIB PAIN Time Seen by Provider: 08/05/19 10:11 Primary Care Provider: SONDRA GUTIERREZ MD [Primary Care Provider] - Follow up as needed Notes: 59-year-old female with history of CKD stage III presents for right flank/right rib pain for 10 days. Patient was sent over by [facility] due to being unable to straight cath patient for urine. Patient states she is currently being treated by her urologist for E. coli UTI and is currently on doxycycline. Patient states she still has 2-3 more weeks of it. Lungs clear to auscultation bilaterally. Regular rate and rhythm. Mild right CVA tenderness. I have greeted and performed a rapid initial assessment of this patient. A comprehensive ED assessment and evaluation of the patient, analysis of test results and completion of the medical decision making process with be conducted by additional ED providers. TRAVEL OUTSIDE OF THE [place] IN LAST 30 DAYS: No - Related Data Allergies/Adverse Reactions: Sulfa (Sulfonamide Antibiotics) Allergy (Verified 01/09/19 12:40) sumatriptan [From Imitrex] Allergy (Verified 01/09/19 12:40) Past Medical History - Past Medical History Cardiac Medical History: Reports: Hx Hypercholesterolemia, Hx Hypertension Endocrine Medical History: Reports: Hx Diabetes Mellitus Type 2 Renal/ Medical History: Denies: Hx Peritoneal Dialysis Psychiatric Medical History: Reports: Hx Depression Past Surgical History: Reports: Hx Appendectomy, Hx Section, Hx Cholecystectomy, Hx Orthopedic Surgery, Hx Tubal Ligation Doctor's Discharge - Discharge Referrals: SONDRA GUTIERREZ MD [Primary Care Provider] - Follow up as needed
--- NOTE | 2019-08-05 10:53 | RADIOLOGY REPORT (SQ) ---
EXAM DESCRIPTION: RIBS RIGHT W/PA CHEST COMPLETED DATE/TIME: 08/05/2019 10:35 am REASON FOR STUDY: right rib/flank pain COMPARISON: None. TECHNIQUE: Frontal view of the chest and additional views of the right ribs acquired. NUMBER OF VIEWS: Three view. LIMITATIONS: None. FINDINGS: FRONTAL CXR: No pneumothorax. No pleural effusion. No atelectasis or infiltrates. RIBS: No displaced rib fractures. No lytic or blastic bony lesions. OTHER: No other significant finding. IMPRESSION: NO PNEUMOTHORAX. NO DISPLACED RIB FRACTURES. COMMENT: SITE OF TRAUMA/COMPLAINT MARKED/STAMP COMPLETED: NO. TECHNICAL DOCUMENTATION: JOB ID: [id number] 2010 [employer]- All Rights Reserved Reading location - IP/workstation name: [email or web address]
[2019-08-05 11:13] LABS: ABSOLUTE BASOPHILS # (AUTO) 0.1 10^3/uL (0.0-0.2); ABSOLUTE EOSINOPHILS # (AUTO) 0.2 10^3/uL (0.0-0.6); ABSOLUTE MONOCYTES (AUTO) 0.5 10^3/uL (0.1-1.4); ABSOLUTE NEUT (AUTO) 5.9 10^3/uL (1.7-8.2); BASOPHILS % (AUTO) 0.8 % (0-2); EOSINOPHILS % (AUTO) 2.6 % (0-6); HEMATOCRIT 37.5 % (36.0-47.0); HEMOGLOBIN 12.9 g/dL (12.0-15.5); MEAN CORPUSCULAR HEMOGLOBIN 31.1 pg (27.0-33.4); MEAN CORPUSCULAR HGB CONC 34.4 g/dL (32.0-36.0); MEAN CORPUSCULAR VOLUME 90 fl (80-97); MONOCYTES % (AUTO) 6.6 % (3-13); PLATELET COUNT 210 10^3/uL (150-450); RED BLOOD COUNT 4.16 10^6/uL (3.72-5.28); RED CELL DISTRIBUTION WIDTH 14.1 % (11.5-14.0); TOTAL CELLS COUNTED % (AUTO) 100 %; WHITE BLOOD COUNT 7.6 10^3/uL (4.0-10.5)
[2019-08-05 11:28] LABS: ALBUMIN 3.8 g/dL (3.5-5.0); ALKALINE PHOSPHATASE 119 U/L (38-126); ANION GAP 9 (5-19); ASPARTATE AMINO TRANSFERASE 24 U/L (14-36); BILIRUBIN,DIRECT 0.3 mg/dL (0.0-0.4); BILIRUBIN,TOTAL 0.6 mg/dL (0.2-1.3); BLOOD UREA NITROGEN 16 mg/dL (7-20); CALCIUM 9.5 mg/dL (8.4-10.2); CARBON DIOXIDE 28 mmol/L (22-30); CHLORIDE 103 mmol/L (98-107); GLUCOSE 154 mg/dL (75-110); POTASSIUM 3.6 mmol/L (3.6-5.0); TOTAL PROTEIN 8.1 g/dL (6.3-8.2)
[2019-08-05 12:44] LABS: APPEARANCE,URINE CLOUDY; BILIRUBIN,URINE NEGATIVE (NEGATIVE); COLOR,URINE YELLOW; GLUCOSE, URINE >=500 mg/dL (NEGATIVE); KETONES,URINE NEGATIVE (NEGATIVE); PROTEIN,URINE NEGATIVE (NEGATIVE); URINE SPECIFIC GRAVITY 1.023; UROBILINOGEN,URINE NEGATIVE mg/dL (<2.0)
[2019-08-05] MEDS ORDERED: HYDROMORPHONE HCL INJ/PF 2 MG/ML AMPULE IM ONE (14:12)
--- NOTE | 2019-08-05 15:37 | ER Document Report ---
Entered by VERNA COBB SCRIBE 08/05/19 1314 Acting as scribe for:ANN BRYANT, DO ED General - General Chief Complaint: Flank Pain Stated Complaint: BACK/RIB PAIN Time Seen by Provider: 08/05/19 10:11 Primary Care Provider: SONDRA GUTIERREZ MD [ACTIVE STAFF] - Follow up as needed Mode of Arrival: Ambulatory Information source: Patient Notes: This 59 year old female patient presents to the emergency department today with complaints of right sided chest wall pain. Patient describes what sounds like rigors x10 days ago with the chest pain beginning the day after. Patient states the pain has gotten progressively worse since onset. Patient has a very complicated history including a constant urinary tract infection which she is on 90 days of doxycycline for. TRAVEL OUTSIDE OF THE [place] IN LAST 30 DAYS: No - Related Data Allergies/Adverse Reactions: Sulfa (Sulfonamide Antibiotics) Allergy (Verified 08/05/19 10:12) sumatriptan [From Imitrex] Allergy (Verified 08/05/19 10:12) Home Medications: auto immune diseases. kidney disease Past Medical History - General Information source: Patient - Social History Smoking Status: Unknown if Ever Smoked Cigarette use (# per day): No Chew tobacco use (# tins/day): No Frequency of alcohol use: None Drug Abuse: None Lives with: Family Family History: None Patient has suicidal ideation: No Patient has homicidal ideation: No - Past Medical History Cardiac Medical History: Reports: Hx Hypercholesterolemia, Hx Hypertension Endocrine Medical History: Reports: Hx Diabetes Mellitus Type 2 Psychiatric Medical History: Reports: Hx Depression Past Surgical History: Reports: Hx Appendectomy, Hx Section, Hx Cholecystectomy, Hx Orthopedic Surgery, Hx Tubal Ligation Review of Systems - Review of Systems Constitutional: No symptoms reported EENT: No symptoms reported Cardiovascular: No symptoms reported Respiratory: See HPI, Other - right sided reproducible chest wall pain Gastrointestinal: No symptoms reported Genitourinary: No symptoms reported Female Genitourinary: No symptoms reported Musculoskeletal: No symptoms reported Skin: No symptoms reported Hematologic/Lymphatic: No symptoms reported Neurological/Psychological: No symptoms reported -: Yes All other systems reviewed and negative Physical Exam - Vital signs Vitals: Temp Pulse Resp BP Pulse Ox 98.1 F 63 20 151/95 H 100 08/05/19 10:09 08/05/19 10:09 08/05/19 10:09 08/05/19 10:09 08/05/19 10:09 - Notes Notes: Physical Exam: General: Alert, appears uncomfortable. HEENT: Normocephalic. Atraumatic. PERRL. Extraocular movements intact. Oropharynx clear. Neck: Supple. Non-tender. Respiratory: No respiratory distress. Clear and equal breath sounds bilaterally. Cardiovascular: Regular rate and rhythm. Abdominal: Morbidly obese, right lateral rib tenderness with palpation. No distension. Normal Bowel Sounds. Back: No gross abnormalities. There is no midline tenderness with palpation, no step-off or deformity. Extremities: Moves all four extremities. Upper extremities: Normal inspection. Normal ROM. Lower extremities: Normal inspection. No edema. Normal ROM. Neurological: Normal cognition. AAOx4. Normal speech. Psychological: Normal affect. Normal Mood. Skin: Warm. Dry. Normal color. Course - Re-evaluation Re-evalutation: 08/05/19 15:30 MDM 59 year old with right sided rib pain posteriorly. Concerned she may have developed pneumonia or had a bony injury of the right side. She has multiple chronic medical issues - psoriatic arthtitis, persistent fevers and recurrent UTI and hidradenitis along with DM. There is no serious illness here. Although I have considered the possiblity of epidural abcess her pain is not midline and palpation over the midline in the back demonstrates no pain. She has local f ollow up and return precautions were discussed. - Vital Signs Vital signs: Temp Pulse Resp BP Pulse Ox 98.1 F 63 20 151/95 H 100 08/05/19 10:09 08/05/19 10:09 08/05/19 10:09 08/05/19 10:09 08/05/19 10:09 - Laboratory Result Diagrams: 08/05/19 10:46 08/05/19 10:46 Laboratory results interpreted by me: 08/05/19 08/05/19 08/05/19 10:46 10:46 12:26 RDW 14.1 H Est GFR (MDRD) Non-Af 57 L Glucose 154 H Urine Glucose (UA) >=500 H Urine Blood SMALL H Leukocyte Esterase Rfl LARGE H Discharge - Discharge Clinical Impression: Morbid obesity Diabetes mellitus Qualifiers: Diabetes mellitus type: type 2 Diabetes mellitus usp insulin use: unspecified usp insulin use status Diabetes mellitus complication status: with other specified complication Qualified Code(s): E11.69 - Type 2 diabetes mellitus with other specified complication Right-sided back pain Qualifiers: Back pain location: thoracic back pain Chronicity: acute Qualified Code(s): M54.6 - Pain in thoracic spine Condition: Good Disposition: HOME, SELF-CARE Instructions: Ice Packs ([facility]), Muscle Strain ([facility]), Oral Narcotic Medication ([facility]), Pain Medication Injection ([facility]), Warm Packs ([facility]) Additional Instructions: Use ice and alternate ice and heat to your right side and right ribs. Please return here for any problems or any concerns. Prescriptions: Fluconazole [Diflucan] 150 mg PO ONCE PRN 1 Days #1 tablet PRN Reason: Cephalexin Monohydrate [Keflex 500 mg Capsule] 500 mg PO TID #30 capsule Referrals: SONDRA GUTIERREZ MD [ACTIVE STAFF] - Follow up as needed I personally performed the services described in the documentation, reviewed and edited the documentation which was dictated to the scribe in my presence, and it accurately records my words and actions.
[2019-08-05] MEDS ORDERED: HYDROCODONE/ACETAMINOPHEN 5-325 MG (6 TAB/ER DISP) PO PRN (15:56)
[2019-08-05 16:08] VITALS: BP 156/80
== END 2019-08-05 16:08 | disposition home or self-care (01) ==
LOC: ER 09:46
DX: M54.6 Pain in thoracic spine (principal); E66.01 Morbid (severe) obesity due to excess calories; R07.89 Other chest pain; R07.81 Pleurodynia; E11.8 Type 2 diabetes mellitus with unspecified complications; N39.0 Urinary tract infection, site not specified; I10 Essential (primary) hypertension; N28.9 Disorder of kidney and ureter, unspecified; L40.50 Arthropathic psoriasis, unspecified; Z79.899 Other long term (current) drug therapy; Z88.2 Allergy status to sulfonamides; Z88.6 Allergy status to analgesic agent
CPT/HCPCS: 99284; 96372; 51701; 36415; 83605; 83690; 85025; 80053; 81001; 71101; J1170; A9270

== ENCOUNTER → 2019-10-29 | Outpatient (CLI) | payer MEDICARE, OTHER ==
[2019-10-29 10:31] VITALS: BP 117/59
--- NOTE | 2019-10-29 10:31 | ER [facility] ASSESSMENT REPORT ---
Intake - In the Last 14 days Have you traveled outside [place]?: No Have you been in close contact with someone CONFIRMED: No Worked in Healthcare?: No - Symptoms Subjective Fever([place] feverish): Yes Chills: Yes Muscule Aches: Yes Runny Nose: No Sore Throat: No Cough (New or worsening chronic cough): No Shortness of breath: No Nausea or Vomiting: Yes Headache: No Abdominal Pain: No Diarrhea(3 or more loose stools in last 24 hours): No - Do you have any of the following Cystic Fibrosis: No Diabetes: Yes High Blood Pressure: Yes Cardiovascular Disease: Yes Cardiovascular Disease Comment: Pulmonary artery HTN Chronic Kidney Disease: Yes Chronic Kidney Disease Comment: CKD Chronic Liver Disease: No Chronic blood disorder like Sickle Cell Disease: No Weak immune system due to disease or medication: Yes Immune System Comment: lupus Neurologic condition that limits movement: No Developmental delay - Moderate to Severe: No Morbid Obesity (>100 pounds over ideal weight): Yes - Objective Temperature: 97.2 F Pulse Rate: 80 Respiratory Rate: 20 Blood Pressure: 117/59 O2 Sat by Pulse Oximetry: 96 Objective: Given above, testing performed: If Testing Performed: Test Specimen Type Sent to General - General Information source: Patient Notes: Patient presents to the [facility] for screening for the coronavirus. Patient states that she has a history of lupus and has had fever as high as 103.9. Patient also reports chills body aches and nausea. Patient denies any recent known exposure to anyone. Patient states her doctor wanted her evaluated due to her immune compromised state. - Related Data Allergies/Adverse Reactions: Sulfa (Sulfonamide Antibiotics) Allergy (Verified 08/05/19 10:12) sumatriptan [From Imitrex] Allergy (Verified 08/05/19 10:12) Past Medical History - General Information source: Patient - Social History Smoking Status: Never Smoker Lives with: Family Family History: None - Medical History Medical History: Other - Lupus - Past Medical History Cardiac Medical History: Reports: Hx Atrial Fibrillation, Hx Hypercholesterolemia, Hx Hypertension Endocrine Medical History: Reports: Hx Diabetes Mellitus Type 2 Renal/ Medical History: Denies: Hx Peritoneal Dialysis Musculoskeletal Medical History: Reports Hx Systemic Lupus Erythematosus Psychiatric Medical History: Reports: Hx Depression Past Surgical History: Reports: Hx Appendectomy, Hx Section, Hx Cholecystectomy, Hx Orthopedic Surgery, Hx Tubal Ligation Physical Exam - Notes Notes: Full physical exam could not be performed due to covid 19 isolation protocols. Constitutional: Nontoxic appearance, no acute distress Eyes: Nonicteric, extraocular movements intact, sclera clear ENT; posterior pharynx clear without exudates, no tonsillar hypertrophy Cardiovascular: Heart rate and rhythm regular, no murmur no JVD Respiratory: Breath sounds clear bilaterally, nonlabored breathing, no use of accessory muscles, no tachypnea Gastrointestinal: Abdomen not distended Muculoskeletal: Moves all extremities well Skin: Normal color Neuro: Awake alert oriented, normal speech Psych: Normal mood and affect Diagnostic Results Laboratory Results: The patient was evaluated during the global Covid 19 pandemic, and that diagnosis was suspected/considered upon their initial presentation. Their evaluation, treatment and testing was consistent with current guidelines for patients who present with complaints or symptoms that may be related to Covid 19. Patient presents with upper respiratory symptoms worrisome for possible Covid 19. Patient does not have emergency worrying symptoms such as difficulty breathing, shortness of breath, chest pain, pressure, confusion or cyanosis. Patient appears suitable for discharge as they vital signs are stable and patient is nontoxic in appearance. Good return precautions have been discussed with patient, patient verbalized understanding and is agreeable with discharge plan of care at this time. Patient Education/Counseling Counseling/Education: Patient was provided with discharge information including: As a person under investigation for Covid 19, the [place] department of Health and Human Services, division of public health advises you to adhere to the following guidance until your test results are reported to you. If your test result is positive, you will receive additional information from your provider and your local health department at that time. Remain at home until you are cleared by the health provider or public health authorities. Keep a log of visitors to your home, notify any visitors to your home of your isolation status. If you plan to move to a new address or leave the county, notify the local health department in your County. Call your doctor or seek care if you have an urgent medical need. Before seeking medical care, call ahead to get instructions from the provider before arriving at the medical office clinic or hospital. Notify them that you are being tested for the virus that causes Covid 19 so that arrangements can be made, as necessary, to prevent transmission to others in the healthcare setting. Next, notify the local health department in your county. If a medical emergency arises and you need to call 911, inform the first responders that you are being tested for the virus that causes Covid 19. Next, notify the local health department in your county. [facility] Discharge - Discharge Clinical Impression: COVID-19 screening Condition: Stable Disposition: Home; Selfcare
[2019-10-29 11:41] LABS: A TYPE INFLUENZA AG NEGATIVE (NEGATIVE); B INFLUENZA AG NEGATIVE (NEGATIVE)
== END ==
LOC: RDC 09:46
PROVIDERS: ATTEND Nurse Practitioner Family
DX: Z20.828 Contact with and (suspected) exposure to other viral communicable diseases (principal); R50.9 Fever, unspecified; M79.10 Myalgia, unspecified site; R11.0 Nausea; E11.22 Type 2 diabetes mellitus with diabetic chronic kidney disease; N18.9 Chronic kidney disease, unspecified; I27.21 Secondary pulmonary arterial hypertension; M32.9 Systemic lupus erythematosus, unspecified; E66.01 Morbid (severe) obesity due to excess calories; Z88.2 Allergy status to sulfonamides; Z88.6 Allergy status to analgesic agent
CPT/HCPCS: 87804; U0003; 87635; 99211

== ENCOUNTER 2020-04-11 08:00 | Day surgery (SDC) | payer MEDICARE, OTHER ==
[~2020-04-11 08:00] MED LIST: KETOROLAC TROMETHAMINE 0.45% 4 DROP/0.4 ML DROPERETTE OS PRN; LIDOCAINE 3.5% OPH GEL/PF 1 ML/TUBE OS PRN; MIDAZOLAM 2 MG/2 ML INJ ONE; ONDANSETRON HCL INJ/PF 4 MG/2 ML SDV ONE
[2020-04-11] MEDS ORDERED: FENTANYL CITRATE INJ/PF 100 MCG/2 ML AMPUL ONE (08:01)
[2020-04-11] MEDS: BESIFLOXACIN HCL 0.6% OPH SUSP 5 ML BOTTLE OS PRN ×4 (08:25→09:44)
[2020-04-11] MEDS: CYCLOPENTOLATE 0.2%/PHENYLEPHRINE 1% OPH SOLN 2 ML OS PRN ×3 (08:25→08:45)
[2020-04-11] MEDS: TROPICAMIDE 1% OPH SOLN 15 ML OS PRN ×3 (08:25→08:45)
[2020-04-11] MEDS: TETRACAINE HCL 0.5% OPH SOLN 4 ML OS PRN ×3 (08:25→09:15)
[2020-04-11] MEDS ORDERED: EPINEPHRINE INJ/PF 1 MG/1 ML AMPULE ONE (08:59)
[2020-04-11] MEDS: EPINEPHRINE INJ/PF 1 MG/1 ML AMPULE ONE ×2 (09:23→09:30)
[2020-04-11] MEDS: LIDOCAINE 1%/PHENYLEPHRINE 1.5% 1 ML VIAL ONE ×2 (09:23→09:30)
[2020-04-11] MEDS: CHONDR SU A NA/HYALUR INTRAOC KIT (SURGICARE) ONE ×2 (09:24→09:30)
[2020-04-11] MEDS: DORZOLAMIDE HCL 2%/TIMOLOL MALEAT 0.5% OPH SOLN 10 ML OS PRN ×2 (09:44)
--- NOTE | 2020-04-18 20:55 | Operative Report ---
Operative Report[facility] Operative Report: PREOPERATIVE DIAGNOSIS: Nuclear, cortical and posterior subcapsular cataract, left eye POSTOPERATIVE DIAGNOSIS: Nuclear, cortical and posterior subcapsular cataracts, left eye PROCEDURE: Phacoemulsification and posterior chamber intraocular lens implant, left eye PROCEDURE DATE: [April 11, 2020] SURGEON: Zacarias Hardin MD Next ONLINE CONTENT COORDINATOR: [Edelmira] ANESTHESIA: Topical with IV sedation next COMPLICATIONS: None TISSUE TO PATHOLOGY: None ESTIMATED BLOOD LOSS: None INDICATION FOR SURGERY: [Ms. Cheung is a 60 year old female] Who presents to our clinic complaining of difficulty seeing, to read and drive due to blurry vision in both eyes. On examination, she was found to have best corrected visual acuity of [20/40] in the left eye. Ophthalmoscopy revealed a [+1] nuclear, [+3] corneal degeneration, [+1] posterior subcapsular cataract in the left eye with normal appearing cornea, vitreous, retina and optic nerve. I discussed the findings of the exam with the patient. We discussed the risks, benefits and alternatives of cataract extraction and intraocular lens implant in the left eye as a means of improving her vision. Risks that were discussed with the patient include infection, bleeding, retinal detachment and possible need for additional surgery. The patient understands that she may need to wear glasses after surgery. After discussion, the patient indicated her interest in having this procedure performed by signing an informed witness consent form. REPORT OF PROCEDURE: On the day of surgery, the patient was given a topical application to the left eye to consist of drop of Tetracaine 0.5%, tropicamide 1%, Cyclomidril, Besivance 0.6% and Acular 0.45%. The patient was then taken to the operating room in a supine position in a standard eye bed. Intravenous sedation was administered and she was prepped and draped in the standard fashion. A timeout was performed to confirm the surgical site. Attention was directed to the left eye where a paracentesis was created at the 5:30 position at the corneal limbus with a 15 degree blade. The anterior chamber was filled with 0.3 mL of 1% methylparaben free lidocaine and after 30 seconds the anterior chamber was filled with viscoelastic material. A 3 plane corneal incision was then made at the 3 o'clock position at the cornea limbus with a keratome. A continuous curvilinear capsulorrhexis was then made in the anterior capsule of the lens with a cystotome. The lens was hydrodissected using balanced saline solution. The lens nucleus was then removed by phacoemulsification using the stop and chop technique. CDE [9.91]. The remaining cortical material was then removed from the posterior capsular bag using irrigation and aspiration. The posterior capsule bag was filled with viscoelastic material and a lens implant was inserted into the posterior capsule bag. I have chosen for this case is a one piece acrylic lens from [employer] model [[id number]], serial number [[id number]], lens power [22.5]. The lens was removed from its package, inspected and found to be free of defects it was loaded into a [place] D search planner. The search planner was passed through the temporal wound and the lens was advanced into the posterior capsular bag. The lens implant was centered in the posterior capsular bag with the [place]hton spatula the viscoelastic material was removed from the eye using irrigation and aspiration. The wounds were closed by stromal hydration and they were tested with the Weck-Ness sponges and found to have no leaks. Intraocular pressure was assessed by manual palpitation found to be with in the physiologic range. The drape and speculum were removed. Drops of Durezol, Combigan and gatifloxacin were instilled in the left eye. The patient was then taken to the recovery room in good condition. The patient tolerated the procedure very well. The patient was given a prescription for gatifloxacin, Durezol and Ilervo to use every 2 hours while awake today. She will return my clinic tomorrow for follow-up evaluation.
== END 2020-04-11 10:20 | disposition home or self-care (01) ==
LOC: SC 08:00
PROVIDERS: ATTEND Ophthalmology
DX: H25.812 Combined forms of age-related cataract, left eye (principal); E11.36 Type 2 diabetes mellitus with diabetic cataract; Z79.4 Long term (current) use of insulin; F41.9 Anxiety disorder, unspecified; M19.90 Unspecified osteoarthritis, unspecified site; I48.91 Unspecified atrial fibrillation; E11.22 Type 2 diabetes mellitus with diabetic chronic kidney disease; I12.0 Hypertensive chronic kidney disease with stage 5 chronic kidney disease or end stage renal disease; N18.6 End stage renal disease; Z86.73 Personal history of transient ischemic attack (TIA), and cerebral infarction without residual deficits; D64.9 Anemia, unspecified; K21.9 Gastro-esophageal reflux disease without esophagitis
CPT/HCPCS: 82962; 00142; 66984; V2632; J2250; J3490 ×2; A9270; J0171; J3010; J2405; 142

== ENCOUNTER 2020-04-28 13:07 | Day surgery (SDC) | payer MEDICARE, OTHER ==
[~2020-04-28 13:07] MED LIST changes: +CHONDR SU A NA/HYALUR INTRAOC KIT (SURGICARE) ONE; +EPINEPHRINE INJ/PF 1 MG/1 ML AMPULE ONE; +KETOROLAC TROMETHAMINE 0.45% 4 DROP/0.4 ML DROPERETTE OD PRN; -KETOROLAC TROMETHAMINE 0.45% 4 DROP/0.4 ML DROPERETTE OS PRN; +LIDOCAINE 1%/PHENYLEPHRINE 1.5% 1 ML VIAL ONE; -LIDOCAINE 3.5% OPH GEL/PF 1 ML/TUBE OS PRN; -MIDAZOLAM 2 MG/2 ML INJ ONE; -ONDANSETRON HCL INJ/PF 4 MG/2 ML SDV ONE
[2020-04-28] MEDS: TROPICAMIDE 1% OPH SOLN 15 ML OD PRN ×3 (13:43→14:07)
[2020-04-28] MEDS: TETRACAINE HCL 0.5% OPH SOLN 4 ML OD PRN ×3 (13:43→14:14)
[2020-04-28] MEDS: CYCLOPENTOLATE 0.2%/PHENYLEPHRINE 1% OPH SOLN 2 ML OD PRN ×3 (13:44→14:07)
[2020-04-28] MEDS: BESIFLOXACIN HCL 0.6% OPH SUSP 5 ML BOTTLE OD PRN ×4 (13:44→14:50)
[2020-04-28] MEDS ORDERED: MIDAZOLAM 2 MG/2 ML INJ ONE (13:55)
[2020-04-28] MEDS ORDERED: FENTANYL CITRATE INJ/PF 100 MCG/2 ML AMPUL ONE (13:55)
[2020-04-28] MEDS: DORZOLAMIDE HCL 2%/TIMOLOL MALEAT 0.5% OPH SOLN 10 ML OD PRN ×2 (14:50)
[2020-04-28] MEDS: PREDNISOLONE ACETATE 1% OPH SUSP 5 ML OD PRN ×2 (14:50)
[2020-04-28] MEDS ORDERED: ACETAMINOPHEN 325 MG TABLET ONE (15:00)
--- NOTE | 2020-04-28 20:27 | Operative Report ---
Operative Report[facility] Operative Report: PREOPERATIVE DIAGNOSIS: Nuclear, cortical and posterior subcapsular cataract, right eye POSTOPERATIVE DIAGNOSIS: Nuclear, cortical and posterior subcapsular cataracts, right eye PROCEDURE: Phacoemulsification and posterior chamber intraocular lens implant, right eye PROCEDURE DATE: [April 28, 2020] SURGEON: Zacarias Hardin MD Next VP AD [employer]ODUCTS AND PLANNING: [Jo Christianson] ANESTHESIA: Topical with IV sedation next COMPLICATIONS: None TISSUE TO PATHOLOGY: None ESTIMATED BLOOD LOSS: None INDICATION FOR SURGERY: [Ms. Cheung is a 60,year old female ] Who presents to our clinic complaining of difficulty seeing, to read and drive due to blurry vision in both eyes. On examination, she was found to have best corrected visual acuity of [20/30 glare 20/50] in the right eye. Ophthalmoscopy revealed a [+1] nuclear, [+3] corneal degeneration, [+1] posterior subcapsular cataract in the right eye with normal appearing cornea, vitreous, retina and optic nerve. I discussed the findings of the exam with the patient. We discussed the risks, benefits and alternatives of cataract extraction and intraocular lens implant in the right eye as a means of improving her vision. Risks that were discussed with the patient include infection, bleeding, retinal detachment and possible need for additional surgery. The patient understands that she may need to wear glasses after surgery. After discussion, the patient indicated her interest in having this procedure performed by signing an informed witness consent form. REPORT OF PROCEDURE: On the day of surgery, the patient was given a topical application to the right eye to consist of drop of Tetracaine 0.5%, tropicamide 1%, Cyclomidril, Besivance 0.6% and Acular 0.45%. The patient was then taken to the operating room in a supine position in a standard eye bed. Intravenous sedation was administered and she was prepped and draped in the standard fashion. A timeout was performed to confirm the surgical site. Attention was directed to the right eye where a paracentesis was created at the 11:30 position at the corneal limbus with a 15 degree blade. The anterior chamber was filled with 0.3 mL of 1% methylparaben free lidocaine and after 30 seconds the anterior chamber was filled with viscoelastic material. A 3 plane corneal incision was then made at the 9 o'clock position at the cornea limbus with a keratome. A continuous curvilinear capsulorrhexis was then made in the anterior capsule of the lens with a cystotome. The lens was hydrodissected using balanced saline solution. The lens nucleus was then removed by phacoemulsification using the stop and chop technique. CDE [12.96 ]. The remaining cortical material was then removed from the posterior capsular bag using irrigation and aspiration. The posterior capsule bag was filled with viscoelastic material and a lens implant was inserted into the posterior capsule bag. I have chosen for this case is a on e piece acrylic lens from [employer] model [SN60WF], serial number [[id number]], lens power [21.5]. The lens was removed from its package, inspected and found to be free of defects it was loaded into a [place] D primary teaching assistant. The primary teaching assistant was passed through the temporal wound and the lens was advanced into the posterior capsular bag. The lens implant was centered in the posterior capsular bag with the Marta spatula the viscoelastic material was removed from the eye using irrigation and aspiration. The wounds were closed by stromal hydration and they were tested with the Weck-Ness sponges and found to have no leaks. Intraocular pressure was assessed by manual palpitation found to be with in the physiologic range. The drape and speculum were removed. Drops of Durezol, Combigan and gatifloxacin were instilled in the right eye. The patient was then taken to the recovery room in good condition. The patient tolerated the procedure very well. The patient was given a prescription for gatifloxacin, Durezol and Ilervo to use every 2 hours while awake today. She will return my clinic tomorrow for follow-up evaluation.
--- OUTSIDE RECORDS SUMMARY | 2020-04-29 15:30 | XMS REPORT ---
:1960 [facility] [place] [address] [place] [address] Care Team Providers Name Role Phone FLACO ROBERTS Primary Care Physician Unavailable Allergies, Adverse Reactions, Alerts Allergy Name Allergy Status Severity Reaction(s) Onset Inactive Treat ing Comments Type Date Date Clinician Sulfa Propensity Active Low Other (Sulfonamide to adverse 8-30 reaction( Antibiotics) reactions 00:00: s ): Rash to drug 00 Sumatriptan Propensity Active Low O ther to adverse 8-30 react ion( reactions 00:00: s): to drug 00 Confusio n /Altered Mental Status Medications Ordered Filled Start Stop Current Ordering Indication Dosage Frequency Signature Comments Components Medication Medication Date Date Medication? Clinician (SIG) Name Name secukinumab 2019-06 Yes Psoriasis 300mg Inject 2 Inject 2 (COSENTYX 1-12 mL (300 mg mL (3 00 PEN, 2 00:00: total) mg total) PENS,) 150 00 under the under the mg/mL PnIj skin every skin injection fourteen every (14) days. fourteen (14) days. secukinumab 2019-06 2020- No Psoriasis 300mg Inject 2 Inject 2 (COSENTYX 1-09 11-12 mL (300 mg mL (3 00 PEN, 2 00:00: 00:00 total) mg total) PENS,) 150 00 :00 under the under the mg/mL PnIj skin every skin injection fourteen every (14) days. fourteen (14) days. empty 2019-06 Yes Use as Use as container 0-23 directed directe d Misc 00:00: to dispose to 00 of dispose Cosentyx of pens. Cosentyx pens. doxycycline 2019-06 Yes Hidradeniti Twice T wice (VIBRA-TABS 0-20 s daily, daily, ) 100 MG 00:00: suppurativa take with take with tablet 00 food food cefadroxil 2019-06 Yes Hidradeniti Take one Take one (DURICEF) 1 0-20 s tablet tablet gram tablet 00:00: suppurativa once da nivia once 00 daily fluconazole 2019-06 Yes Hidradeniti Take on e Take one (DIFLUCAN) 0-20 s tablet up table t up 150 MG 00:00: suppurativa to once to o nce tablet 00 weekly for weekly yeast for yeast infection infection secukinumab 2019-06- No Psoriasis 300mg Inject th e Inject (COSENTYX 0-20 11-09 contents the PEN, 2 00:00: 00:00 of 2 pens contents PENS,) 150 00 :00 (300mg) of 2 pe ns mg/mL PnIj under the (300m g) injection skin once under the every 2 skin once weeks every 2 weeks secukinumab 2019-06- No Psoriasis Inject th e Inject (COSENTYX 0-14 10-20 contents the PEN, 2 00:00: 00:00 of 2 pens contents PENS,) 150 00 :00 (300mg) of 2 pe ns mg/mL PnIj under the (300m g) injection skin once under the every 4 skin once weeks. every 4 weeks. cefadroxil 2019-06- No cefadroxil (DURICEF) 1 0-12 10-20 (DURICEF) gram tablet 00:00: 00:00 1 gram 00 :00 tablet INVELTYS 1 2019-06 Yes STARTING 3 STA RTING % DrpS 0-07 DAYS PRIOR 3 DAYS 00:00: TO PRIOR TO 00 SURGERY, SURGERY, INSTILL 1 INSTILL 1 DROP TWICE DROP DAILY TO TWICE OPERATIVE DAILY TO EYE. AFTER OPERATIVE SURGERY, EYE. INSTILL 1 AFTER DROP INTO SURGERY, OPERATIVE INSTILL 1 EYE EVERY DROP INTO 2 HOUR OPERATIVE EYE EVERY 2 HOUR gatifloxaci 2019- Yes STARTING 3 ST ARTING n (ZYMAXID) 0-07 DAYS PRIOR 3 D AYS 0.5 % Drop 00:00: TO PRIOR TO 00 SURGERY, SURGERY, INSTILL 1 INSTILL 1 DROP INTO DROP INTO OPERATIVE OPERATIVE EYE 4 EYE 4 TIMES TIMES DAILY THEN DAILY AFTER THEN SURGERY AFTER INSTILL 1 SURGERY DROP INTO INSTILL 1 OPERATIVE DROP INTO EYE EVERY OPERATIVE EYE EVERY secukinumab 2020-1 2020- No Psoriasis USE US E (COSENTYX 0-07 10-13 INSTRUCTED INSTR UCTE PEN, 2 00:00: 00:00 BY YOUR D BY YOUR PENS,) 150 00 :00 PRESCRIBER PRES CRIBE mg/mL PnIj R injection HYDROcodone Yes Pain at Take 1 Take 1 -acetaminop 6-10 surgical tablets tab lets hen (NORCO) 00:00: site every 6 every 6 5-325 mg 00 hours as hours as per tablet needed for need ed post-surgi for susi pain post-surg ical pain diazePAM Yes Take 2 Take 2 (VALIUM) 5 6-03 tablets tablets MG tablet 00:00: (10mg) 30 (10mg ) 30 00 minutes minutes prior to prior to dermatolog dermatolo y gy procedure procedure fluconazole Yes Take 2 Take 2 (DIFLUCAN) 5-15 tablets tablets 150 MG 00:00: (300mg) (300mg) tablet 00 once once weekly as weekly as needed for needed yeast for yeast infections infection s rivaroxaban 2020- No 20mg Take 1 Take 1 (XARELTO) 5-15 05-15 tablet (20 table t 20 mg 00:00: 23:59 mg total) (20 mg tablet 00 :00 by mouth total) by daily with mouth evening daily meal. with evening meal. doxycycline 2019- No Hidradeniti Twice T wice (VIBRA-TABS 5-15 10-20 s daily, daily, ) 100 MG 00:00: 00:00 suppurativa take with take with tablet 00 :00 food food cefadroxil 2019- No Hidradeniti 1g Take 1 T padmini 1 (DURICEF) 1 5-15 06-10 s tablet (1 tabl et (1 gram tablet 00:00: 00:00 suppurativa g total ) g total) 00 :00 by mouth by mouth daily. daily. oxybutynin Yes oxybutynin (DITROPAN) 4-02 (DITROPAN) 5 MG tablet 00:00: 5 MG 00 tablet zolpidem 2019-0 Yes zolpidem (AMBIEN CR) 3-02 (AMBIEN 6.25 MG CR 00:00: CR) 6.25 tablet 00 MG CR tablet diazePAM 2019- No Hidradeniti Take prior Take (VALIUM) 10 2-11 06-03 s to prior to MG tablet 00:00: 00:00 suppurativa procedure procedure 00 :[address] Cavazos Sayshahzad fluconazole 2019- Yeast 200mg Take 1 Take 1 (DIFLUCAN) 07-07 05-15 infection tablet tabl et 200 MG 00:00: 00:00 (200 mg (200 mg tablet 00 :00 total) by total) by mouth once mouth a week. once a week. HYDROcodone 2019- No Take 1-2 Take 1-2 -acetaminop 1-06 06-10 tablets tablet s hen (NORCO) 00:00: 00:00 every 6 every 6 5-325 mg 00 :00 hours as hours as per tablet needed for need ed post-surgi for susi pain post-surg ical pain diazePAM 2018-06 No Hidradeniti Take prior Take (VALIUM) 10 2-20 s to prior to MG tablet 00:00: suppurativa procedure procedure [address] Cavazos Sayshahzad diazePAM 2018-06- Hidradeniti Take prior Take (VALIUM) 10 2-11 12-20 s to prior to MG tablet 00:00: 00:00 suppurativa procedure procedure 00 :[address] Cavazos Sayshahzad secukinumab 2019- Psoriasis Inject 2 Inject 2 (COSENTYX 03-02 10-07 pens (300 pens ( 300 PEN, 2 00:00: 00:00 mg) under mg) unde r PENS,) 150 00 :00 the skin the sk in mg/mL PnIj once once injection weekly at weekly at weeks 0, weeks 0, 1, 2, 3, 1, 2, 3, and 4 and 4 followed followed by 300 mg by 300 mg every 4 every 4 weeks. weeks. esomeprazol Yes Take by Take by e magnesium 02-18 mouth. mouth. (NEXIUM 15:07: ORAL) 04 DULoxetine Yes 60mg Take 60 mg Manas e 60 (CYMBALTA) 02-18 by mouth. mg by 60 MG 15:07: mouth. capsule 04 ketoconazol Yes Apply Apply e (NIZORAL) 02-18 topically topi margaux 2 % shampoo 15:07: Two (2) Two ( 2) 04 times a times a week. week. Lactobacill Yes 1{capsu Take 1 Take 1 us 02-18 le} capsule by capsule rhamnosus 15:07: mouth by mouth GG 04 daily. daily. (CULTURELLE ) 10 billion cell capsule leflunomide Yes 10mg Take 10 mg Ta ke 10 (ARAVA) 10 02-18 by mouth mg by MG tablet 15:07: daily. mouth 04 daily. empaglifloz Yes Take by Take by in 02-18 mouth. mouth. (JARDIANCE) 15:07: 25 mg Tab 04 insulin Yes Inject Inject glargine 02-18 under the under t he (LANTUS) 15:07: skin skin 100 unit/mL 04 nightly. night ly. injection metFORMIN 2019- No 500mg Take 500 Take 5 00 (GLUCOPHAGE 02-18 06-10 mg by mg by ) 500 MG 15:07: 00:00 mouth. mouth. tablet 04 :00 fluocinolon 2020- No Apply Apply e (SYNALAR) 02-18 06-10 topically topi marguax 0.01 % 15:07: 00:00 Two (2) Two (2) external 04 :00 times a times a solution day. day. clindamycin 2019- No 300mg Take 300 Take 300 (CLEOCIN) 02-18 06-10 mg by mg by 300 MG 15:07: 00:00 mouth mouth capsule 04 :00 Three (3) Three (3 ) times a times a day. day. warfarin 2020- No 5mg Take 5 mg Take 5 mg (COUMADIN) 02-18 05-15 by mouth. by mo uth. 5 MG tablet 15:07: 00:00 04 :00 allopurinol 0 Yes 300mg Take 300 Take 300 (ZYLOPRIM) 04 mg by mg by 300 MG 15:06: mouth. mouth. tablet 22 atorvastati Yes 40mg Take 40 mg Ta ke 40 n (LIPITOR) 02-18 by mouth. mg b y 40 MG 15:06: mouth. tablet 22 olmesartan Yes 40mg Take 40 mg Manas e 40 (BENICAR) 02-18 by mouth. mg by 40 MG 15:06: mouth. tablet 22 NIFEdipine Yes 30mg Take 30 mg Manas e 30 (PROCARDIA 02-18 by mouth. mg by XL) 30 MG 15:06: mouth. 24 hr 22 tablet metoprolol Yes 50mg Take 50 mg Manas e 50 succinate 02-18 by mouth. mg by (TOPROL-XL) 15:06: mouth. 50 MG 24 hr 22 tablet furosemide Yes 40mg Take 40 mg Manas e 40 (LASIX) 40 02-18 by mouth. mg by MG tablet 15:06: mouth. 22 spironolact Yes 25mg Take 25 mg Ta ke 25 one 02-18 by mouth. mg by (ALDACTONE) 15:06: mouth. 25 MG 22 tablet doxycycline 2019- No 100mg Take 100 Take 100 (VIBRA-TABS 02-18 05-15 mg by mg by ) 100 MG 15:06: 00:00 mouth. mouth. tablet 22 :00 diazePAM 2018- No Hidradeniti Take prior Take (VALIUM) 10 02-18 12-11 s to prior to MG tablet 00:00: 00:00 suppurativa procedure procedure 00 :[address] Cavazos Sayed secukinumab 2018- No Psoriasis Inject 2 Inject 2 (COSENTYX 02-18 09-16 pens (300 pens ( 300 PEN, 2 00:00: 00:00 mg) under mg) unde r PENS,) 150 00 :00 the skin the sk in mg/mL PnIj once once injection weekly at weekly at weeks 0, weeks 0, 1, 2, 3, 1, 2, 3, and 4 and 4 followed followed by 300 mg by 300 mg every 4 every 4 weeks. weeks. cholecalcif Yes Take by Take b y justo, mouth. mouth. vitamin D3, 125 mcg (5,000 unit) tablet Problems Condition Condition Condition Status Onset Resolution Last Treatin g Comments Name Details Category Date Date Treatment Clinician Date No known No known [id number] active active problems problems Procedures Procedure Date / Time Performed Performing Clinician Adele lamar AST 2019-02-18 20:50:00 Diana Alarcon 2019-02-18 20:50:00 Diana Alarcon 2019-02-18 20:50:00 DorianMasonDiana Michele CBC W/ AUTO DIFF 2019-02-18 20:50:00 Diana Alarcon Michele HEPATITIS B SURFACE ANTIGEN 2019-02-18 20:50:00 Dorian Diana Michele HEPATITIS B SURFACE ANTIBODY 2019-02-18 20:50:00 DorianTaj y M CREATININE 2019-02-18 20:50:00 Diana Alarcon HEPATITIS B CORE ANTIBODY, TOTAL 2019-02-18 20:50:00 Abbi Alarcon ANTI-DNA ANTIBODY, 2019-02-18 20:50:00 Ramírez Cavazos DOUBLE-STRANDED HEPATITIS C ANTIBODY 2019-02-18 20:50:00 Diana Alarcon HISTONE ANTIBODIES 2019-02-18 20:50:00 Ramírez Cavazos Results Test Description Test Time Test Comments Text Results Atomic Results Result Comments #[id number] 2019-02-18 16:50:00 Test Item Value Reference Range Comments Hepatitis B Surface Ag (test code = Hepatitis B Surface Ag) Nonreactive Nonreactive #[id number] 16:50:00 Test Item Value Reference Range Comments Hepatitis C Ab (test code = Hepatitis C Ab) Nonreactive Nonr eactive #[id number] 16:50:00 Test Item Value Reference Range Comments dsDNA Ab (test code = dsDNA Ab) Negative Negative #[id number] 16:50:00 Test Item Value Reference Range Comments Histone Ab (test code = Histone Ab) 0.9 U <1.0 (Negati ve) U #[id number] 16:50:00 Test Item Value Reference Range Comments WBC (test code = WBC) 7.8 10*9/L 4.5- 11.0 10*9/L RBC (test code = RBC) 4.25 10*12/L 4.00- 5.20 10*12/L HGB (test code = HGB) 12.7 g/dL 12.0- 16.0 g/dL HCT (test code = HCT) 38.8 % 36.0- 46.0 % MCV (test code = MCV) 91.2 fL 80.0- 100.0 fL MCH (test code = MCH) 29.9 pg 26.0- 34.0 pg MCHC (test code = MCHC) 32.8 g/dL 31.0- 37.0 g/dL RDW (test code = RDW) 14.8 % 12.0- 15.0 % MPV (test code = MPV) 8.2 fL 7.0- 10.0 fL Platelet (test code = Platelet) 286 10*9/L 150- 440 10*9/L Neutrophils % (test code = Neutrophils %) 65.9 % Lymphocytes % (test code = Lymphocytes %) 19.6 % Monocytes % (test code = Monocytes %) 7.1 % Eosinophils % (test code = Eosinophils %) 4.4 % Basophils % (test code = Basophils %) 1.0 % Absolute Neutrophils (test code = Absolute 5.2 10*9/L 2.0- 7.5 10*9/L Neutrophils) Absolute Lymphocytes (test code = Absolute 1.5 10*9/L 1.5- 5.0 10*9/L Lymphocytes) Absolute Monocytes (test code = Absolute 0.6 10*9/L 0.2- 0. 8 10*9/L Monocytes) Absolute Eosinophils (test code = Absolute 0.3 10*9/L 0.0- 0.4 10*9/L Eosinophils) Absolute Basophils (test code = Absolute 0.1 10*9/L 0.0- 0. 1 10*9/L Basophils) Large Unstained Cells (test code = Large 2 % 0- 4 % Unstained Cells) #[id number] 16:50:00 Test Item Value Reference Range Comments AST (test code = AST) 24 U/L 14- 38 U/L #[id number] 16:50:00 Test Item Value Reference Range Comments ALT (test code = ALT) 14 U/L 15- 48 U/L #[id number] 16:50:00 Test Item Value Reference Range Comments BUN (test code = BUN) 15 mg/dL 7- 21 mg/dL #[id number] 16:50:00 Test Item Value Reference Range Comments Creatinine (test code = Creatinine) 0.94 mg/dL 0.60- 1.00 m g/dL EGFR CKD-EPI Non-, 67 mL/min/1.73m2 >=60 mL/min/ 1.73m2 Female (test code = EGFR CKD-EPI Non-, Female) EGFR CKD-EPI , Female 77 mL/min/1.73m2 >=60 mL/m in/1.73m2 (test code = EGFR CKD-EPI , Female) #[id number] 16:50:00 Test Item Value Reference Range Comments Hep B Core Total Ab (test code = Hep B Core Nonreactive Nonr eactive Total Ab) #[id number] 16:50:00 Test Item Value Reference Range Comments Hep B S Ab (test code = Hep B S Ab) Nonreactive Nonreactive, Grayzone Hepatitis B Surface Ab Quant (test code = <8.00 <8.00 m(IU)/mL Hepatitis B Surface Ab Quant) Encounters Start End Encounter Admission Attending Care Care Encounter ID Date/Time Date/Time Type Type Clinicians Facility Department 2020-04-28 2020-04-28 [facility] [id number] 00:00:00 00:00:00 2020-04-28 2020-04-28 [facility] [id number] 00:00:00 00:00:00 2020-04-25 2020-04-25 [facility] [id number] 00:00:00 00:00:00 2020-04-08 2020-04-08 [facility] [id number] 00:00:00 00:00:00 2020-04-05 2020-04-05 [facility] [id number] 10:45:42 14:32:23 [id number] 2020-04-05 2020-04-05 [facility] [id number] 10:45:42 14:32:23 2020-04-05 2020-04-05 [facility] [id number] 00:00:00 00:00:00 [id number] 2020-04-05 2020-04-05 [facility] [id number] 00:00:00 00:00:00 2020-03-29 2020-03-29 [facility] [id number] 00:00:00 00:00:00 2020-03-23 2020-03-23 [facility] [id number] 00:00:00 00:00:00 2020-02-16 2020-02-16 [facility] [id number] 00:00:00 00:00:00 2019-11-25 2019-11-25 [facility] [id number] 09:04:19 16:21:43 [id number] 2019-11-25 2019-11-25 [facility] [id number] 09:04:19 10:34:19 2019-11-25 2019-11-25 [facility]patient [facility] [id number] 00:00:00 00:00:00 [id number] 2019-11-18 2019-11-18 [facility] [id number] 00:00:00 00:00:00 2019-10-30 2019-10-30 [facility] [id number] 00:00:00 00:00:00 2019-10-28 2019-10-28 [facility] [id number] 00:00:00 00:00:00 2019-10-28 2019-10-28 [facility] [id number] 00:00:00 00:00:00 2019-09-28 2019-09-28 [facility] [id number] 00:00:00 00:00:00 [id number] 2019-09-17 2019-09-17 [facility] [id number] 00:00:00 00:00:00 2019-07-07 2019-07-07 [facility]patient [facility] [id number] 14:33:30 23:59:00 [id number] 2019-07-07 2019-07-07 [facility] [id number] 14:33:30 14:48:30 2019-07-07 2019-07-07 [facility] [id number] 00:00:00 00:00:00 [id number] 2019-06-22 2019-06-22 Outpatient [facility] [id number] 09:37:02 13:00:02 [id number] 2019-06-22 2019-06-22 [facility] [id number] 09:37:02 13:00:02 2019-06-22 2019-06-22 [facility] [id number] 00:00:00 00:00:00 [id number] 2019-06-05 [facility] [id number] 00:00:00 00:00:00 2019-05-27 2019-05-27 [facility] [id number] 00:00:00 00:00:00 2019-04-22 2019-04-24 Outpatient [facility] [id number] 14:15:57 11:43:31 [id number] 2019-04-22 2019-04-22 [facility] [id number] 14:15:57 14:30:57 2019-04-22 2019-04-22 Outpatient [facility] [id number] 00:00:00 00:00:00 [id number] 2019-04-08 2019-04-08 Outpatient [facility] [id number] 00:00:00 00:00:00 [id number] 2019-03-25 2019-03-25 Outpatient [facility] [id number] 07:41:59 10:48:44 [id number] 2019-03-25 2019-03-25 [facility] [id number] 07:41:59 10:48:44 2019-03-25 2019-03-25 Outpatient [facility] [id number] 00:00:00 00:00:00 [id number] 2019-03-04 2019-03-04 [facility] [id number] 00:00:00 00:00:00 2019 2019 [facility] [id number] 00:00:00 00:00:00 2019-02-27 2019-02-27 [facility] [id number] 00:00:00 00:00:00 2019-02-19 2019-02-19 [facility] [id number] 00:00:00 00:00:00 2019-02-18 2019-02-18 Outpatient [facility] [id number] 14:40:23 23:59:00 [id number] 2019-02-18 2019-02-18 [facility] [id number] 14:40:23 15:10:23 2019-02-18 2019-02-18 Outpatient [facility] [id number] 00:00:00 00:00:00 [id number] 2019-02-18 2019-02-18 [facility] [id number] 00:00:00 00:00:00 Payers Payer Name Policy Type Policy Number Effective Date Expiration D ate MEDICARE PART A AND [id number] 2011 00:00:00 PART B FOR LIFE [id number] 2017 00:00:00 MEDICARE SUPPLEMENT Plan of Treatment Planned Activity Planned Date Details Comments Future Scheduled Test [code = ] Future Scheduled Test [code = ] Future Scheduled Test [code = ] Future Scheduled Test [code = ] Future Scheduled Test [code = ] Future Scheduled Test [code = ] Future Scheduled Test [code = ] Future Scheduled Test [code = ] Future Scheduled Test [code = ] Future Scheduled Test [code = ] Future Scheduled Test [code = ] Future Scheduled Test [code = ] Future Scheduled Test [code = ] Future Scheduled Test [code = ] Future Scheduled Test [code = ] Future Scheduled Test [code = ] Future Scheduled Test [code = ] Future Scheduled Test [code = ] Future Scheduled Test [code = ] Future Scheduled Test [code = ] Future Scheduled Test [code = ] Future Scheduled Test [code = ] Future Scheduled Test [code = ] Future Scheduled Test [code = ] Future Scheduled Test [code = ] Future Scheduled Test [code = ] Future Scheduled Test [code = ] Future Scheduled Test [code = ] Social History Social Habit Start Date Stop Date Comments Sex Assigned At Tobacco smoking status NHIS 2020-04-05 00:00:00 2020-04-05 00:00 :00 Alcohol intake 2020-04-05 00:00:00 2020-04-05 00:00:00 Tobacco use and exposure 2020-04-05 00:00:00 2020-04-05 00:00:00 Vital Signs Vital Name Observation Time Observation Value Comments Body height 2019-02-18 15:05:00 158 cm Body weight 2019-02-18 15:05:00 138.982 kg
== END 2020-04-28 15:30 | disposition home or self-care (01) ==
LOC: SC 13:07
PROVIDERS: ATTEND Ophthalmology
DX: H25.811 Combined forms of age-related cataract, right eye (principal); E11.36 Type 2 diabetes mellitus with diabetic cataract; I48.91 Unspecified atrial fibrillation; G47.33 Obstructive sleep apnea (adult) (pediatric); I10 Essential (primary) hypertension; F32.9 Major depressive disorder, single episode, unspecified; Z86.73 Personal history of transient ischemic attack (TIA), and cerebral infarction without residual deficits; K21.9 Gastro-esophageal reflux disease without esophagitis; Z79.4 Long term (current) use of insulin; E66.9 Obesity, unspecified
CPT/HCPCS: 66984; 82962; V2632; A9270 ×2; J2250; J3490 ×2; J0171; J3010